=== PATIENT | female | born 1960 | race Caucasian/White ===

== ENCOUNTER 2018-12-28 11:53 | Inpatient (IN) ==
[2018-12-28] MEDS ORDERED: ONDANSETRON INJ 2 MG/ML 2 ML VIAL IV STA (12:06)
[2018-12-28] MEDS ORDERED: SODIUM CHLORIDE 0.9% 1000ML 2,000 ML IV ONE (12:06)
[2018-12-28 12:24] LABS: Basophils # (auto) 0.01 K/uL (0-0.2); Basophils % (auto) 0.2 %; Eosinophils # (auto) 0.07 K/uL (0-0.5); Eosinophils % (auto) 1.4 %; Hematocrit (blood only) 37.3 % (37-47); Hemoglobin 12.8 g/dL (12.0-16.0); Immature Granulocytes # (auto) 0.03 K/uL (0.00-0.02); Immature Granulocytes % (auto) 0.6 %; Lymphocytes # (auto) 1.04 K/uL (1.2-3.4); Lymphocytes % (auto) 21.3 %; Mean Corpuscular Hemoglobin 30.3 pg (25-34); Mean Corpuscular Hgb Conc 34.3 g/dL (32-36); Mean Corpuscular Volume 88.2 fL (80-100); Mean Platelet Volume 9.3 fL (7.4-10.4); Monocytes # (auto) 0.37 K/uL (0.11-0.59); Monocytes % (auto) 7.6 %; Neutrophils # (auto) 3.36 K/uL (1.4-6.5); Neutrophils % (auto) 68.9 %; Platelet Count 214 K/uL (130-400); RDW Coefficient of Variation 12.1 % (11.5-14.5); RDW Standard Deviation 38.5 fL (36.4-46.3); Red Blood Count 4.23 M/uL (4.2-5.4); White Blood Count 4.88 K/uL (4.8-10.8)
[2018-12-28 12:30] LABS: Appearance Urine Clear (Clear); Bilirubin Urine Negative (Negative); Blood Urine Negative (Negative); Color Urine Yellow; Glucose Urine UA Negative (Negative); Leukocyte Esterase Urine Negative (Negative); Nitrite Urine Negative (Negative); Protein Urine Negative (Negative); Specific Gravity Urine 1.018 (1.000-1.030); Urobilinogen Urine Negative (Negative)
[2018-12-28 12:32] LABS: Ketones Urine 3+ (Negative)
--- NOTE | 2018-12-28 12:33 | XRay Report ---
XR chest 1V portable CLINICAL HISTORY: Cough. Shortness of breath. COMPARISON STUDY: No previous studies for comparison. FINDINGS: Lung volumes are normal. Lungs are clear. There is no pneumothorax or pleural effusion. Car diac size is normal. Mediastinal contours are normal. There is no evidence for pulmonary edema. IMPRESSION: No acute cardiopulmonary findings. Electronically signed by: Rick Weeks M.D. 12/28/2018 12:32 PM
[2018-12-28] MEDS ORDERED: MoRPHine SULFATE 10 MG/ML CARP/VIAL IV STA (12:34)
[2018-12-28] MEDS ORDERED: MoRPHine SULFATE 2 MG/ML CARP ONE (12:40)
[2018-12-28] MEDS ORDERED: MoRPHine SULFATE 4 MG/ML 1 ML CARP\\VIAL ONE (12:40)
[2018-12-28 12:41] LABS: Albumin Level 4.1 gm/dl (3.4-5.0); BUN Creatinine Ratio 10.6 (10-20); Calcium 9.3 mg/dl (8.5-10.1); Creatinine Clr Calc Pharmacy 76.5 ml/min; Est GFR (African American) 94.2; Est GFR (Non-African American) 81.3; Potassium 3.7 mmol/L (3.5-5.1)
[2018-12-28 12:44] LABS: Albumin Globulin Ratio 1.1 (0.9-2); Bilirubin,Total 0.6 mg/dl (0.2-1); Globulin 3.7 gm/dl (2.5-4.0); Total Protein 7.8 gm/dl (6.4-8.2)
[2018-12-28 13:02] LABS: Troponin I < 0.015 ng/ml (0-0.045)
--- NOTE | 2018-12-28 14:50 | Ultrasound Report ---
US gallbladder HISTORY: Pain. Nausea. Recent cholecystectomy with right upper quadrant abdominal pain and elevated LFTs COMPARISON: None. FINDINGS: Ultrasonic evaluation of the right upper quadrant shows the pancreas to be normal. Fatty replacement of the liver is noted. Prior cholecystectomy. No evidence for collection or abscess within the gallbladder fossa. Common bile duct 6 mm. Right kidney is negative for hydronephrosis. IMPRESSION: 1. Prior cholecystectomy. 2. No evidence for abscess or collection. 3. Fatty replacement of the liver. 4. Otherwise negative study The above report was generated using voice recognition software. It may contain grammatical, syntax or spelling errors. Electronically signed by: Lucio Rider M.D. 12/28/2018 2:49 PM
--- NOTE | 2018-12-28 16:09 | History & Physical Report ---
Date of Service December 28, 2018 Assessment & Plan (1) Abdominal pain, acute, right upper quadrant: Patient s/p laparoscopic cholecystectomy performed on 12/08/18 at [facility] by Dr. Vale. Per report, no complications during surgery. Patient did well for the first week then developed worsening abdominal pain, nausea, vomiting and PO intolerance. CT abdomen at OSH with no acute issues identified, no evidence of post-operative complication. Mildly elevated transaminase levels which have since improved. Non-obstructive pattern to LFTs with no duct dilatation noted on imaging. ?gastritis/GERD/gastroparesis as etiology of discomfort. Sister with reported history of Primary Biliary Cirrhosis -Observation to medical floor -Obtain MRCP -GI Consultation appreciated. Patient seen by GI while in the ER -NPO for now for possible endoscopy in AM -Symptom control with Morphine PRN, Zofran PRN -Repeat LFTs in AM Present on Admission?: Yes (2) Nausea: As above -Zofran PRN Present on Admission?: Yes (3) Transaminitis: Mildly elevated transaminase levels, AST=40 and VGC=802 now, seemingly improved from outside records. ?retained stone, ?fatty liver -Repeat LFTs in AM F/E/N - LR at 100mL/hr x 2 L, monitor electrolytes and replete as needed, NPO for now Ppx - SCDs, continue Protonix 40mg IV BID Code - Full Dispo - Observation to medical floor Present on Admission?: Yes History of Present Illness Chief Complaint: abdominal pain Primary Care Provider: Skyler Harper Yohana Young is a 58yo C female s/p laparoscopic cholecystectomy performed at [facility] on 12/08/[address] Vale. Per report the surgery went well, no complications identified. She was discharged home in stable condition. She reports doing quite well for the first week following the surgery. She was eating well, pain was well controlled and had resolution of her chronic nausea. On 12/24/18 she developed increased pain in her RUQ as well as severe nausea and dry heaving. She was unable to tolerate PO. She returned to the ER at [place] on 12/26/18 with the above complaints - persistent nausea/dry heaves/abdominal pain and po intolerance. She was admitted for workup and treatment. During that stay she had elevation in AST to 177 and ALT to 205. RUQUS performed which showed increased liver echogenicity likely secondary to fatty liver infiltration. NO bile duct dilatation noted. She had a CT Abdomen/Pelvis with IV contrast performed on 12/26 which was unchanged from prior study from 12/04. Study suggested fatty liver infiltration, small stable cyst in right lobe of the liver, no acute process. Remainder of workup was negative to include a hepatitis panel as well. She was seen by her surgeon during her admission and told that her pain was not surgical in nature. She was treated with protonix/zofran and pain medication. She ultimately ended up leaving [place] because she felt her symptoms were not being adequately addressed. Per record review: patient with history of recurrent abdominal pain. She was hospitalized in October and November for abdominal pain. She had an EGD performed in October which revealed a 2cm hiatal hernia, gastritis, gastric polyps and prominent esophageal veins. She had a HIDA performed in November which showed biliary dyskinesia of 2% therefore was referred for cholecystectomy. Allergies Allergy/AdvReac Type Severity Reaction Status Date / Time No Known Allergies Allergy Unverified 12/28/18 13:09 Home Medications Home Medications Medication Instructions Recorded Confirmed Type pantoprazole 40 mg PO BID 12/28/18 12/28/18 History sucralfate [Carafate] 1 g PO UD 12/28/18 12/28/18 History Past Med/Surg History Medical History Fatty liver Surgical History History of cholecystectomy Family History Sister Primary biliary cirrhosis Other Heart disease Social History Feels Safe at Home: Yes Smoking Status: Never smoker Hx Alcohol Use: No Hx Substance Use: No Review of Systems Review of Systems: All systems reviewed & are unremarkable except as noted in HPI & below Patient denies fevers, has had some chills Denies chest pain, palpitations, SOB, diarrhea Physical Exam Physical Exam: General: patient resting comfortably, NAD, non-toxic in appearance, AA&O x 4, anxious in appearance Skin: warm, dry, no rashes or lesions, no jaundice HEENT: NC/AT, PERRL, EOMI, anicteric sclera, conjunctiva without injection, external ear normal to inspection and nontender, nares patent, moist mucus membranes, dentition intact, no oropharyngeal lesions, neck supple, trachea midline, no LAD, no thyromegaly, no JVD Heart: +S1/S2, regular, no m/r/g Lungs: equal air entry bilaterally, no rales/rhonchi/wheezes Abd: +BS, soft, ND, no masses/organomegaly/ascites, tenderness in RUQ with no rebound/guarding/peritoneal signs, surgical incisions well approximated, no bleeding/drainage/erythema Ext: warm, 2+ pulses in UE/LE bilaterally, no clubbing/cyanosis or edema Neuro: nonfocal, patient AA&O x 4, speech intact, no facial droop, moving all extremities on command with equal strength 5/5 Results & Data Vital Signs (Past 12 Hours) Vital Signs Temp Pulse Pulse Resp BP BP Pulse Ox 12/28/18 16:06 72 18 159/93 H 98 12/28/18 15:19 70 16 167/93 H 98 12/28/18 12:46 20 96 12/28/18 11:57 36.8 C 84 20 156/93 H 97 Laboratory Results Lab Results 12/28/18 12/28/18 12/28/18 Range/Units 12:10 12:10 12:10 WBC 4.88 (4.8-10.8) K/uL RBC 4.23 (4.2-5.4) M/uL Hgb 12.8 (12.0-16.0) g/dL Hct 37.3 (37-47) % MCV 88.2 (80-100) fL MCH 30.3 (25-34) pg MCHC 34.3 (32-36) g/dL RDW Std Deviation 38.5 (36.4-46.3) fL RDW Coeff of Debra 12.1 (11.5-14.5) % Plt Count 214 (130-400) K/uL MPV 9.3 (7.4-10.4) fL Immature Gran % (Auto) 0.6 % Neut % (Auto) 68.9 % Lymph % (Auto) 21.3 % Davison % (Auto) 7.6 % Eos % (Auto) 1.4 % Baso % (Auto) 0.2 % Immature Gran # (Auto) 0.03 H (0.00-0.02) K/uL Neut # (Auto) 3.36 (1.4-6.5) K/uL Lymph # (Auto) 1.04 L (1.2-3.4) K/uL Davison # (Auto) 0.37 (0.11-0.59) K/uL Eos # (Auto) 0.07 (0-0.5) K/uL Baso # (Auto) 0.01 (0-0.2) K/uL Sodium 141 (136-145) mmol/L Potassium 3.7 (3.5-5.1) mmol/L Chloride 109 H (98-107) mmol/L Carbon Dioxide 25 (21-32) mmol/L Anion Gap 7.0 (3-11) BUN 8 (7-18) mg/dl Creatinine 0.80 (0.6-1.2) mg/dl Est Cr Clr Drug Dosing 76.5 ml/min Est GFR ( Amer) 94.2 Est GFR (Non-Af Amer) 81.3 BUN/Creatinine Ratio 10.6 (10-20) Glucose 91 (70-99) mg/dl Calcium 9.3 (8.5-10.1) mg/dl Total Bilirubin 0.6 (0.2-1) mg/dl AST 40 H (15-37) U/L ALT 154 H (12-78) U/L Alkaline Phosphatase 111 (45-117) U/L Troponin I (0-0.045) ng/ml Total Protein 7.8 (6.4-8.2) gm/dl Albumin 4.1 (3.4-5.0) gm/dl Globulin 3.7 (2.5-4.0) gm/dl Albumin/Globulin Ratio 1.1 (0.9-2) Lipase 108 (73-393) U/L Urine Color Yellow Urine Appearance Clear (Clear) Urine pH 5.0 (4.5-7.5) Ur Specific [place] 1.018 (1.000-1.030) Urine Protein Negative (Negative) Urine Glucose (UA) Negative (Negative) Urine Ketones 3+ H (Negative) Urine Blood Negative (Negative) Urine Nitrite Negative (Negative) Urine Bilirubin Negative (Negative) Urine Urobilinogen Negative (Negative) Ur Leukocyte Esterase Negative (Negative) 12/28/18 Range/Units 12:10 WBC (4.8-10.8) K/uL RBC (4.2-5.4) M/uL Hgb (12.0-16.0) g/dL Hct (37-47) % MCV (80-100) fL MCH (25-34) pg MCHC (32-36) g/dL RDW Std Deviation (36.4-46.3) fL RDW Coeff of Debra (11.5-14.5) % Plt Count (130-400) K/uL MPV (7.4-10.4) fL Immature Gran % (Auto) % Neut % (Auto) % Lymph % (Auto) % Davison % (Auto) % Eos % (Auto) % Baso % (Auto) % Immature Gran # (Auto) (0.00-0.02) K/uL Neut # (Auto) (1.4-6.5) K/uL Lymph # (Auto) (1.2-3.4) K/uL Davison # (Auto) (0.11-0.59) K/uL Eos # (Auto) (0-0.5) K/uL Baso # (Auto) (0-0.2) K/uL Sodium (136-145) mmol/L Potassium (3.5-5.1) mmol/L Chloride (98-107) mmol/L Carbon Dioxide (21-32) mmol/L Anion Gap (3-11) BUN (7-18) mg/dl Creatinine (0.6-1.2) mg/dl Est Cr Clr Drug Dosing ml/min Est GFR ( Amer) Est GFR (Non-Af Amer) BUN/Creatinine Ratio (10-20) Glucose (70-99) mg/dl Calcium (8.5-10.1) mg/dl Total Bilirubin (0.2-1) mg/dl AST (15-37) U/L ALT (12-78) U/L Alkaline Phosphatase (45-117) U/L Troponin I < 0.015 (0-0.045) ng/ml Total Protein (6.4-8.2) gm/dl Albumin (3.4-5.0) gm/dl Globulin (2.5-4.0) gm/dl Albumin/Globulin Ratio (0.9-2) Lipase (73-393) U/L Urine Color Urine Appearance (Clear) Urine pH (4.5-7.5) Ur Specific [place] (1.000-1.030) Urine Protein (Negative) Urine Glucose (UA) (Negative) Urine Ketones (Negative) Urine Blood (Negative) Urine Nitrite (Negative) Urine Bilirubin (Negative) Urine Urobilinogen (Negative) Ur Leukocyte Esterase (Negative) Diagnostic Findings US gallbladder HISTORY: Pain. Nausea. Recent cholecystectomy with right upper quadrant abdominal pain and elevated LFTs COMPARISON: None. FINDINGS: Ultrasonic evaluation of the right upper quadrant shows the pancreas to be normal. Fatty replacement of the liver is noted. Prior cholecystectomy. No evidence for collection or abscess within the gallbladder fossa. Common bile duct 6 mm. Right kidney is negative for hydronephrosis. IMPRESSION: 1. Prior cholecystectomy. 2. No evidence for abscess or collection. 3. Fatty replacement of the liver. 4. Otherwise negative study The above report was generated using voice recognition software. It may contain grammatical, syntax or spelling errors. Electronically signed by: Lucio Rider M.D. 12/28/2018 2:49 PM Dictated: 12/28/18 1448 Transcribed: 12/28/18 1448 XR chest 1V portable CLINICAL HISTORY: Cough. Shortness of breath. COMPARISON STUDY: No previous studies for comparison. FINDINGS: Lung volumes are normal. Lungs are clear. There is no pneumothorax or pleural effusion. Cardiac size is normal. Mediastinal contours are normal. There is no evidence for pulmonary edema. IMPRESSION: No acute cardiopulmonary findings. Electronically signed by: Rick Weeks M.D. 12/28/2018 12:32 PM Dictated: 12/28/18 1231 Transcribed: 12/28/18 1231 ECG Additional Comments: NSR at 66bpm, normal axis and intervals, no evidence of ischemia Code Status & VTE Plan Code Status Full VTE Prophylaxis Plan VTE Prophylaxis will be ordered: Yes PG Care Time/CCT Total # of Minutes Spent Total Time Spent with Patient: Total time spent is greater than 50% in coordination of care (as documented) at patient's floor/unit and/or counseling patient:
--- NOTE | 2018-12-28 16:32 | Gastrointestinal Consultation ---
Date of Consultation December 28, 2018 Assessment & Plan (1) Transaminitis: (2) Abdominal pain, acute, right upper quadrant: Pt is a 58 y/o female presented w RUQ abd pain, n/v. Hx of cholecystectomy on 12/08, labs notable for transaminitis, gallbladder u/s w/o fluid collection or abscess - PPI IV BID - Check MRCP -> if positive for biliary obstruction, will plan for ERCP tomorrow. If negative, will plan for EGD tomorrow instead to r/o PUD, Hpylori, gastritis - Keep NPO after midnight - Trend LFTs Supervising Physician Co-Signing Physician Notes I performed a history and physical examination of the patient, including specifically on physical exam - soft, nontender abdomen. I have discussed the patient's management with Krys. Please refer to the nurse practitioner's note for the documented findings and plan of care. 58 female patient s/p recent cholecystectomy due to dyskinesia. Now has recurrent symptoms of nausea, vomiting and dyspepsia. She was told previously she may have Gastroparesis given her normal EGD. Plan: MRCP, if negative for biliary obstruction then EGD tomorrow. GES as OP. History of Present Illness Reason for Consultation: Abd pain, n/v; s/p cholecystectomy Requesting Physician: Dr. Emile Candelario Attending Physician: Dr. Ismael Sánchez History of Present Illness Pt is a 58 y/o female who presented to ED w c/o RUQ abd pain, n/v. Had lap cholecystectomy on 12/08 in [place] area. Cholecystectomy done for HIDA w low EF and pt having nausea symptoms. For about 1 week post op pt feels well. However now started to have RUQ abd pain, n/v. Denies bowel habit changes. She initially presented to [place] ED prior to coming to [facility]. Labs there showed transaminitis. Repeat labs here showed similar transaminitis, normal Tbili and alk phos. Lipase normal. Gallbladder u/s w/o abscess or collection, + fatty liver Allergies Allergy/AdvReac Type Severity Reaction Status Date / Time No Known Allergies Allergy Unverified 12/28/18 13:09 Home Medications Home Medications Medication Instructions Recorded Confirmed Type pantoprazole 40 mg PO BID 12/28/18 12/28/18 History sucralfate [Carafate] 1 g PO UD 12/28/18 12/28/18 History Patient History Medical History Gall bladder disease Surgical History History of cholecystectomy Family History Sister Primary biliary cirrhosis Other Heart disease Social History Preferred Language: Faroese Communication Ability: Effective Cutter Hand Required: No Beliefs That Will Affect Care: None Current Living Situation: Spouse Feels Safe at Home: Yes Smoking Status: Unknown if ever smoked Hx Alcohol Use: Yes Alcohol type: wine Hx Substance Use: No Review of Systems Review of Systems: All systems reviewed & are unremarkable except as noted in HPI & below Physical Exam Constitutional: WD/WN, vitals as above well groomed, cooperative and comfortable Eyes: PERRL, conjunctivae normal, anicteric sclerae ENMT: external ear and nose normal, oropharynx normal Respiratory: normal respiratory effort, lungs clear to auscultation Cardiovascular: RRR, no murmur, no edema Gastrointestinal (Abdomen): Inspection/Auscultation: + hypoactive bowel sounds Percussion/Palpation: + abdomen tender (RUQ) and abdomen soft Skin: no rashes, warm and dry no jaundice Psychiatric: A+Ox3, euthymic affect Lymphatic: no lymphedema Results & Data Vital Signs (Past 12 Hours) Vital Signs Temp Pulse Pulse Resp BP BP Pulse Ox 12/28/18 16:06 72 18 159/93 H 98 12/28/18 15:19 70 16 167/93 H 98 12/28/18 12:46 20 96 12/28/18 11:57 36.8 C 84 20 156/93 H 97
--- NOTE | 2018-12-28 16:38 | XRay Report ---
XR abdomen min 2V CLINICAL HISTORY: 58 years-old Female presenting with ruq abd pain. TECHNIQUE: Single supine view of the abdomen was obtained. COMPARISON: Right upper quadrant ultrasound performed earlier today. FINDINGS: Nonobstructive bowel gas pattern. No gross pneumoperitoneum. Allowing for bowel gas and stool, no calcifications to suggest nephrolithiasis. Fallopian tube occlus ion clips noted. Osseous structures normal. Lung bases clear. IMPRESSION: 1. No acute intra-abdominal pathology. Electronically signed by: José Manuel Maravilla M.D. 12/28/2018 4:36 PM
--- NOTE | 2018-12-28 17:08 | Magnetic Resonance Report ---
MR MRCP CLINICAL HISTORY: Right upper quadrant pain. Nausea and vomiting. History of prior cholecystectomy, o n December 13, 2018. Evaluate for retained calculi.. COMPARISON STUDY: No previous studies for comparison. FINDINGS: A breath-hold MRCP was performed. MIP images were acquired. There is a 7 mm T2 bright focus within the right lobe of the liver likely representing a cyst. There is no splenomegaly. There is no intra or extrahepatic biliary ductal dilatation. The common bile duct measures 4 mm. Ther e are no filling defects to indicate retained calculi. The pancreatic duct is of normal caliber. IMPRESSION: 1. No evidence of biliary or pancreatic ductal dilatation 2. No ductal filling defects to indicate calculi 3. Surgically absent gallbladder Electronically signed by: Venkat Ma M.D. 12/28/2018 5:07 PM
--- NOTE | 2018-12-28 17:25 | Emergency Department Note ---
Entered by Reynaldo Field acting as a scribe for Emile Candelario DO History of Present Illness General Chief complaint: Vomiting Stated complaint: NAUSEA, VOMITING Source: patient History of Present Illness Provider complaint: Abdominal pain Onset (ago): day(s) 3 Location: abdomen Severity: similar to prior episodes Pain Consistency: + other (Worsening) Maximum Pain Intensity: 8 Current Pain Intensity: 8 Relieved By: + none Exacerbated By: + none Associated symptoms: + loss of appetite and + nausea/vomiting; no chest pain, no cough, no fever/chills and no shortness of breath The patient is a 58 year old female w/ PMHx a cholecystectomy who presents to the ED w/ CC of right upper quadrant abdominal pain that started to worsen about 3 days ago. The patient states that since January 2018 she has had nausea, v omiting and loss of appetite. She notes that she went to [facility] in [place] 4 times and had her gallbladder taken out on December 13. The patient went to her follow up appointments and was healing nicely until 3 days ago when her abdominal pain returned along with the nausea and loss of appetite. The patient rates the pain as an 8/10 and notes nothing makes it better or worse. When the pain returned, the patient was hospitalized at [facility]. While she was there she had a CT and ultrasound done. She also saw both general surgery and GI. The patient denies any diarrhea, urinary symptoms, cough, rhinorrhea, or fevers. Home Medications Home Medications Medication Instructions Recorded Confirmed Type pantoprazole 40 mg PO BID 12/28/18 12/28/18 History sucralfate [Carafate] 1 g PO UD 12/28/18 12/28/18 History Allergies Allergy/AdvReac Type Severity Reaction Status Date / Time No Known Allergies Allergy Unverified 12/28/18 13:09 Past Med/Surg History Medical History Gall bladder disease Surgical History History of cholecystectomy Family History Sister Primary biliary cirrhosis Other Heart disease Social History Feels Safe at Home: Yes Smoking Status: Never smoker Hx Alcohol Use: No Hx Substance Use: No Review of Systems See HPI for pertinent positives & negatives. and A total of 10 systems reviewed and were otherwise negative Physical Exam Vital Signs Vital Signs - 24 hr 12/28/18 11:57 12/28/18 12:46 12/28/18 15:19 Temperature 36.8 C Temperature Source Oral Sepsis Recent Fever Within 48 Hours No Sepsis Action Taken by Nursing No Action Required Pulse Rate 84 Pulse Rate [Left Finger] 70 Pulse Rhythm Regular Pulse Strength Normal Respiratory Rate 20 20 16 Respiratory Effort / Characteristics Non-Labored Spontaneous Non-Labored Respiratory Depth Normal Normal Respiratory Pattern Regular Regular Blood Pressure 156/93 H Blood Pressure [Left Arm] 167/93 H Blood Pressure Mean 114 Blood Pressure Mean [Left Arm] 117 Blood Pressure Position Sitting Pulse Oximetry 97 96 98 Oxygen Delivery Method Room Air Room Air Room Air 12/28/18 16:06 Temperature Temperature Source Sepsis Recent Fever Within 48 Hours Sepsis Action Taken by Nursing Pulse Rate Pulse Rate [Left Finger] 72 Pulse Rhythm Pulse Strength Respiratory Rate 18 Respiratory Effort / Characteristics Non-Labored Respiratory Depth Normal Respiratory Pattern Regular Blood Pressure Blood Pressure [Left Arm] 159/93 H Blood Pressure Mean Blood Pressure Mean [Left Arm] 115 Blood Pressure Position Pulse Oximetry 98 Oxygen Delivery Method Room Air GENERAL: Sitting up in bed holding RUQ, alert, well appearing, well nourished, in minimal distress, non-toxic EYE EXAM: normal conjunctiva. OROPHARYNX: no exudate, no erythema, lips, buccal mucosa, and tongue normal and mucous membranes are moist NECK: supple, no nuchal rigidity, no adenopathy, non-tender LUNGS: Clear to auscultation. Normal chest wall mechanics HEART: no murmurs, S1 normal and S2 normal ABDOMEN: abdomen soft, tender to palpation of the RUQ tracking through the right lateral ribs, , normo-active bowel, sounds, no masses, no rebound or guarding. Old incisions are clean dry and intact BACK: Back is symmetrical on inspection and there is no deformity, no midline tenderness, no CVA tenderness. SKIN: no rashes and no bruising UPPER EXTREMITIES: upper extremities are grossly normal. LOWER EXTREMITIES: No pitting edema. NEURO EXAM: Normal sensorium, cranial nerves II-XII grossly intact, normal speech, no gross weakness of arms, no gross weakness of legs. Course ED COURSE: Vital signs were reviewed and showed hypertension. The patients medical record was reviewed The above diagnostic studies were performed and reviewed. ED treatments and interventions as stated above. 1213: The patient was evaluated in room B04B. A complete history and physical examination was performed. 1414: Upon reevaluation, the patient is resting in bed. I discussed my findings with the patient and she understands and agrees with the treatment plan. 1455: I spoke to Krys HERRERA about the patient's case. She suggested admitting the patient to medicine and they will do a MRCP. 1532: I spoke to Dr. Tejeda [facility] Hospitalist about the patient's case. She is going to accept the patient for further evaluation. Based on the patients age, coexisting illnesses, exam and lab findings the decision to treat as an inpatient was made. The patient remained stable while under my care. The patient will be evaluated for further management. Consultations Consultation #1: I spoke to Krys HERRERA about the patient's case. She suggested admitting the patient to medicine and they will do a MRCP. Time: 14:55 Consultation #2: I spoke to Dr. Nikhil Painting [facility] Hospitalist about the patient's case. She is going to accept the patient for further evaluation. Time: 15:32 Administered Medications Discontinued Medications Sodium Chloride (Nss 1000ml) 2,000 mls @ 999 mls/hr IV .Q2H1M ONE Stop: 12/28/18 14:06 Last Infusion: 12/28/18 14:35 Dose: 0 mls/hr Documented by: [id number] Admin: 12/28/18 12:34 Dose: 999 mls/hr Documented by: [id number] Morphine Sulfate (Morphine Sulfate) 6 mg IV NOW STA Stop: 12/28/18 12:35 Last Admin: 12/28/18 12:41 Dose: Not Given Documented by: [id number] Morphine Sulfate (Morphine Sulfate) Confirm Administered Dose 2 mg .ROUTE .STK- MED ONE Stop: 12/28/18 12:41 Last Admin: 12/28/18 12:41 Dose: 2 mg Documented by: [id number] Morphine Sulfate (Morphine Sulfate) Confirm Administered Dose 4 mg .ROUTE .STK- MED ONE Stop: 12/28/18 12:41 Last Admin: 12/28/18 12:41 Dose: 4 mg Documented by: [id number] Ondansetron HCl (Zofran) 4 mg IV NOW STA Stop: 12/28/18 12:07 Last Admin: 12/28/18 12:34 Dose: 4 mg Documented by: [id number] Medical Decision Making Differential Diagnosis Differential diagnoses includes but is not limited to gastritis, peptic ulcer disease, GERD, gallbladder disease, pancreatitis, small bowel obstruction, acute coronary syndrome, pericarditis, ischemic bowel, irritable bowel disease, irritable bowel syndrome, appendicitis, diverticulitis, malignancy, hernia, urinary tract infection, torsion, perforation, trauma, infectious. Medical Records Attestation: I reviewed the patient's medical records. Home Medications Current Medication List: was personally reviewed by me Laboratory Data Attestation: I reviewed the patient's lab results. Result diagrams: 12/28/18 12:10 12/28/18 12:10 Lab Results 12/28/18 12/28/18 12/28/18 Range/Units 12:10 12:10 12:10 WBC 4.88 (4.8-10.8) K/uL RBC 4.23 (4.2-5.4) M/uL Hgb 12.8 (12.0-16.0) g/dL Hct 37.3 (37-47) % MCV 88.2 (80-100) fL MCH 30.3 (25-34) pg MCHC 34.3 (32-36) g/dL RDW Std Deviation 38.5 (36.4-46.3) fL RDW Coeff of Debra 12.1 (11.5-14.5) % Plt Count 214 (130-400) K/uL MPV 9.3 (7.4-10.4) fL Immature Gran % (Auto) 0.6 % Neut % (Auto) 68.9 % Lymph % (Auto) 21.3 % Benton % (Auto) 7.6 % Eos % (Auto) 1.4 % Baso % (Auto) 0.2 % Immature Gran # (Auto) 0.03 H (0.00-0.02) K/uL Neut # (Auto) 3.36 (1.4-6.5) K/uL Lymph # (Auto) 1.04 L (1.2-3.4) K/uL Benton # (Auto) 0.37 (0.11-0.59) K/uL Eos # (Auto) 0.07 (0-0.5) K/uL Baso # (Auto) 0.01 (0-0.2) K/uL Sodium 141 (136-145) mmol/L Potassium 3.7 (3.5-5.1) mmol/L Chloride 109 H (98-107) mmol/L Carbon Dioxide 25 (21-32) mmol/L Anion Gap 7.0 (3-11) BUN 8 (7-18) mg/dl Creatinine 0.80 (0.6-1.2) mg/dl Est Cr Clr Drug Dosing 76.5 ml/min Est GFR ( Amer) 94.2 Est GFR (Non-Af Amer) 81.3 BUN/Creatinine Ratio 10.6 (10-20) Glucose 91 (70-99) mg/dl Calcium 9.3 (8.5-10.1) mg/dl Total Bilirubin 0.6 (0.2-1) mg/dl AST 40 H (15-37) U/L ALT 154 H (12-78) U/L Alkaline Phosphatase 111 (45-117) U/L Troponin I (0-0.045) ng/ml Total Protein 7.8 (6.4-8.2) gm/dl Albumin 4.1 (3.4-5.0) gm/dl Globulin 3.7 (2.5-4.0) gm/dl Albumin/Globulin Ratio 1.1 (0.9-2) Lipase 108 (73-393) U/L Urine Color Yellow Urine Appearance Clear (Clear) Urine pH 5.0 (4.5-7.5) Ur Specific Fisher 1.018 (1.000-1.030) Urine Protein Negative (Negative) Urine Glucose (UA) Negative (Negative) Urine Ketones 3+ H (Negative) Urine Blood Negative (Negative) Urine Nitrite Negative (Negative) Urine Bilirubin Negative (Negative) Urine Urobilinogen Negative (Negative) Ur Leukocyte Esterase Negative (Negative) 12/28/18 Range/Units 12:10 WBC (4.8-10.8) K/uL RBC (4.2-5.4) M/uL Hgb (12.0-16.0) g/dL Hct (37-47) % MCV (80-100) fL MCH (25-34) pg MCHC (32-36) g/dL RDW Std Deviation (36.4-46.3) fL RDW Coeff of Debra (11.5-14.5) % Plt Count (130-400) K/uL MPV (7.4-10.4) fL Immature Gran % (Auto) % Neut % (Auto) % Lymph % (Auto) % Benton % (Auto) % Eos % (Auto) % Baso % (Auto) % Immature Gran # (Auto) (0.00-0.02) K/uL Neut # (Auto) (1.4-6.5) K/uL Lymph # (Auto) (1.2-3.4) K/uL Benton # (Auto) (0.11-0.59) K/uL Eos # (Auto) (0-0.5) K/uL Baso # (Auto) (0-0.2) K/uL Sodium (136-145) mmol/L Potassium (3.5-5.1) mmol/L Chloride (98-107) mmol/L Carbon Dioxide (21-32) mmol/L Anion Gap (3-11) BUN (7-18) mg/dl Creatinine (0.6-1.2) mg/dl Est Cr Clr Drug Dosing ml/min Est GFR ( Amer) Est GFR (Non-Af Amer) BUN/Creatinine Ratio (10-20) Glucose (70-99) mg/dl Calcium (8.5-10.1) mg/dl Total Bilirubin (0.2-1) mg/dl AST (15-37) U/L ALT (12-78) U/L Alkaline Phosphatase (45-117) U/L Troponin I < 0.015 (0-0.045) ng/ml Total Protein (6.4-8.2) gm/dl Albumin (3.4-5.0) gm/dl Globulin (2.5-4.0) gm/dl Albumin/Globulin Ratio (0.9-2) Lipase (73-393) U/L Urine Color Urine Appearance (Clear) Urine pH (4.5-7.5) Ur Specific Fisher (1.000-1.030) Urine Protein (Negative) Urine Glucose (UA) (Negative) Urine Ketones (Negative) Urine Blood (Negative) Urine Nitrite (Negative) Urine Bilirubin (Negative) Urine Urobilinogen (Negative) Ur Leukocyte Esterase (Negative) Imaging Data Radiologist's Impression: Radiology results as stated below per my review and the radiologist's interpretation: XR chest 1V portable CLINICAL HISTORY: Cough. Shortness of breath. COMPARISON STUDY: No previous studies for comparison. FINDINGS: Lung volumes are normal. Lungs are clear. There is no pneumothorax or pleural effusion. Cardiac size is normal. Mediastinal contours are normal. There is no evidence for pulmonary edema. IMPRESSION: No acute cardiopulmonary findings. Electronically signed by: Rick Weeks M.D. 12/28/2018 12:32 PM US gallbladder HISTORY: Pain. Nausea. Recent cholecystectomy with right upper quadrant abdominal pain and elevated LFTs COMPARISON: None. FINDINGS: Ultrasonic evaluation of the right upper quadrant shows the pancreas to be normal. Fatty replacement of the liver is noted. Prior cholecystectomy. No evidence for collection or abscess within the gallbladder fossa. Common bile duct 6 mm. Right kidney is negative for hydronephrosis. IMPRESSION: 1. Prior cholecystectomy. 2. No evidence for abscess or collection. 3. Fatty replacement of the liver. 4. Otherwise negative study The above report was generated using voice recognition software. It may contain grammatical, syntax or spelling errors. Electronically signed by: Lucio Rider M.D. 12/28/2018 2:49 P ECG Data Attestation: I personally reviewed and interpreted this ECG as follows: Indication: vomiting Rate (beats per minute): 66 Rhythm: sinus rhythm Findings: + other (Normal axis); no PVC Blood Pressure Blood Pressure Findings: Elevated blood pressure Blood Pressure Disposition: Referred to patients primary care provider TANA Vera Patient is a 58-year-old female who presents the ER he was just discharged from [place] today after 3 days today for right upper quadrant abdominal pain with a transaminitis. Cholecystectomy done secondary to a HIDA with an EF of 3% at the end of November. Nausea vomiting and abdominal pain has been persistent for the past 3 days. She left AMA. Had an ultrasound and negative CAT scan per report. She notes she is unable to eat. She did see GI and general surgery down there. Vitals show that she is hypertensive. Labs show no significant leukocytosis or anemia. BMP along with LFTs was remarkable for an ALT of 154 and AST of 40 down from 200. Troponin was negative. Pain is reproducible on exam. Lipase was normal. Ultrasound was negative. UA was negative. Discussed with GI who recommended observation for MRCP. Update the hospitalist and patient was updated bedside. Patient was given IV fluids and IV morphine along with IV Zofran. Impression & Plan Abdominal pain, acute, right upper quadrant, Transaminitis Discharge Plan Visit Data Chief Complaint: Vomiting Stated Complaint: NAUSEA, VOMITING ED Provider: Emile Candelario Discharge Problem: Abdominal pain, acute, right upper quadrant, Transaminitis Patient Disposition: Being Evaluated by Hospitalist Forms Stand Alone Forms: My [facility] Prescriptions Prescriptions: No Action sucralfate [Carafate] 1 gram Tablet 1 g PO UD RF: 0 pantoprazole 40 mg tablet,delayed release (DR/EC) 40 mg PO BID RF: 0 Referrals Referrals: Skyler Harper [Primary Care Provider] - The scribe's documentation has been prepared under my direction and personally reviewed by me in its entirety. I confirm that the note above accurately r eflects all work, treatment, procedures, and medical decision making performed by me.
[2018-12-28] MEDS ORDERED: DOCUSATE SODIUM 100 MG CAP PO PRN (18:39)
[2018-12-28] MEDS ORDERED: POLYETHYLENE (MIRALAX) 17 GM PACK PO PRN (18:39)
[2018-12-28] MEDS: LACTATED RINGER'S 1,000 ML IV SCH (18:52)
[2018-12-28 19:17] LABS: Magnesium 2.2 mg/dl (1.8-2.4)
[2018-12-28] MEDS: PANTOprazole 40 MG in SYRINGE 0 ML IV SCH (19:40)
[2018-12-28] MEDS: MoRPHine SULFATE 2 MG/ML CARP IV PRN (20:50)
[2018-12-29] MEDS: MoRPHine SULFATE 2 MG/ML CARP IV PRN (03:07)
[2018-12-29] MEDS: LACTATED RINGER'S 1,000 ML IV SCH (03:54)
[2018-12-29 05:36] LABS: Basophils # (auto) 0.02 K/uL (0-0.2); Basophils % (auto) 0.4 %; Eosinophils # (auto) 0.26 K/uL (0-0.5); Eosinophils % (auto) 5.1 %; Hematocrit (blood only) 32.9 % (37-47); Hemoglobin 11.4 g/dL (12.0-16.0); Immature Granulocytes # (auto) 0.01 K/uL (0.00-0.02); Immature Granulocytes % (auto) 0.2 %; Lymphocytes # (auto) 1.38 K/uL (1.2-3.4); Lymphocytes % (auto) 27.2 %; Mean Corpuscular Hemoglobin 30.8 pg (25-34); Mean Corpuscular Hgb Conc 34.7 g/dL (32-36); Mean Corpuscular Volume 88.9 fL (80-100); Mean Platelet Volume 9.4 fL (7.4-10.4); Monocytes # (auto) 0.45 K/uL (0.11-0.59); Monocytes % (auto) 8.9 %; Neutrophils # (auto) 2.95 K/uL (1.4-6.5); Neutrophils % (auto) 58.2 %; Platelet Count 197 K/uL (130-400); RDW Standard Deviation 38.8 fL (36.4-46.3); White Blood Count 5.07 K/uL (4.8-10.8)
[2018-12-29 05:58] LABS: Albumin Level 3.4 gm/dl (3.4-5.0); BUN Creatinine Ratio 14.1 (10-20); Bilirubin Direct 0.1 mg/dl (0-0.2); Calcium 8.6 mg/dl (8.5-10.1); Creatinine Clr Calc Pharmacy 99.1 ml/min; Est GFR (African American) 115.2; Est GFR (Non-African American) 99.4; Potassium 3.4 mmol/L (3.5-5.1)
[2018-12-29 06:02] LABS: Bilirubin,Total 0.6 mg/dl (0.2-1); Total Protein 6.4 gm/dl (6.4-8.2)
[2018-12-29] MEDS: PANTOprazole 40 MG in SYRINGE 0 ML IV SCH ×2 (07:55→21:21)
[2018-12-29] MEDS: ONDANSETRON INJ 2 MG/ML 2 ML VIAL IV PRN (07:57)
[2018-12-29] MEDS ORDERED: DEXTROSE 50% 50 ML SYRINGE IV ONE (08:05)
[2018-12-29] MEDS ORDERED: D5W AND LACTATED RINGERS 1,000 ML IV SCH (08:45)
[2018-12-29] MEDS ORDERED: PROMETHAZINE HCL 12.5 MG in SODIUM CHLORIDE 0.9% 50 ML IV STA (09:51)
--- NOTE | 2018-12-29 09:55 | History & Physical Bridge Note ---
Date of Service December 29, 2018 History & Physical Bridge Note I have examined the patient, reviewed the History & Physical and in the interval since the performance of the History & Physical I have noted the following changes of clinical significance: no changes noted MRCP negative for biliary obstruction. Pt having nausea, dry heaving. She is still c/o mild upper abd pain as well. Currently NPO. VS and labs reviewed. Exam: - AAOx3, dry heaving - CTA bilateral lungs - HRR - Abd soft, hypoactive - Plan for EGD eval today by Dr. Sánchez - Keep NPO, continue Protonix 40mg IV BID - Trend LFTs Supervising Physician Co-Signing Physician Notes I performed a history and physical examination of the patient, including specifically on physical exam - soft, nontender abdomen. I have discussed the patient's management with Krys. Please refer to the nurse practitioner's note for the documented findings and plan of care. EGD today
[2018-12-29] MEDS ORDERED: POTASSIUM CHLORIDE 20 MEQ TABCR PO STA (10:31)
[2018-12-29 10:48] LABS: Bilirubin Direct 0.2 mg/dl (0-0.2); Bilirubin,Total 0.6 mg/dl (0.2-1); Total Protein 7.3 gm/dl (6.4-8.2)
--- NOTE | 2018-12-29 11:13 | Anesthesiology Consultation ---
Date of Service December 29, 2018 Assessment & Plan (1) Encounter for pre-operative examination: Chart Review Chart Review: Acceptable Risk for Surgery and Patient NOT seen in Pre Admission Testing Consults Requested none ASA ASA2 Proposed Anesthesia Anesthesia Type: MAC Risk / Benefits Reviewed With: PT / POA / Parent / Guardian, Accepts Plan and I nformed Consent Obtained History Surgery Operation Date: 12/29/18 09:30 Proposed Procedures p Esophagogastroduodenoscopy Dr Sánchez - Ismael Sánchez MD Height/Weight Height: 5 ft 5 in Weight: 73.2 kg Allergies Allergy/AdvReac Type Severity Reaction Status Date / Time No Known Allergies Allergy Unverified 12/28/18 13:09 Medications Home Medications Medication Instructions Recorded Confirmed Last Taken pantoprazole 40 mg PO BID 12/28/18 12/28/18 Unknown sucralfate [Carafate] 1 g PO UD 12/28/18 12/28/18 12/28/18 Active Medications Generic Name Dose Route Start Last Admin Trade Name Freq PRN Reason Stop Dose Admin Pantoprazole Sodium 40 mg/ 10 mls @ 5 mls/min 12/28/18 19:00 12/29/18 07:55 Syringe IV 01/27/19 18:59 5 mls/min BID@0900,2100 MONIQUE Administration Dextrose/Lactated Ringer's 1,000 mls @ 100 mls/hr 12/29/18 08:45 12/29/18 09:13 D5w And Lactated Ringers IV 01/28/19 08:44 100 mls/hr .Q10H MONIQUE Administration Morphine Sulfate 2 mg 12/28/18 18:39 12/29/18 03:07 Morphine Sulfate IV 01/11/19 18:38 2 mg Q4H PRN Administration Pain Ondansetron HCl 4 mg 12/28/18 18:39 12/29/18 07:57 Zofran IV 01/27/19 18:38 4 mg Q6H PRN Administration Nausea NPO Date Last Intake of Fluids: 12/28/18 Time Last Intake of Fluids: 18:00 Last Intake of Fluids Comment: sips and chips Date Last Intake of Solids: 12/25/18 Time Last Intake of Solids: 18:00 Past Medical History Medical History Fatty liver Exercise / Class Metabolic Activity II 4-5 Yardwork/Stairs/Walk up hill Past Family History Family History Sister Primary biliary cirrhosis Other Heart disease Past Surgical History Surgical History History of cholecystectomy Past Anesthesia History No Hx of Anesthesia Complications and No Family Hx of Anesthesia Complications History of PONV No Hx of PONV and No Hx of Motion Sickness Social History Smoking Status: Unknown if ever smoked Hx Alcohol Use: Yes Alcohol type: wine alcohol intake frequency: a few times a month Hx Substance Use: No Physical Exam Vital Signs Last Vital Signs Temp 36.9 C 12/29/18 11:04 Pulse 65 12/29/18 11:04 Resp 18 12/29/18 11:04 BP 165/87 H 12/29/18 11:04 Pulse Ox 97 12/29/18 11:04 ENMT Mouth: no dentition abnormality Thyromental Distance: > or= 3.5 Finger Breadths Mallampati Class: II Neck normal visual inspection Respiratory normal respiratory effort Auscultation: lungs clear to auscultation bilaterally Cardiovascular Rate/Rhythm: regular rate and regular rhythm Psychiatric Orientation: alert Testing Laboratory Results 12/29/18 04:48 12/29/18 04:48 Urine Color Yellow 12/28/18 12:10 Urine Appearance Clear (Clear) 12/28/18 12:10 Urine pH 5.0 (4.5-7.5) 12/28/18 12:10 Ur Specific Saline 1.018 (1.000-1.030) 12/28/18 12:10 Urine Protein Negative (Negative) 12/28/18 12:10 Urine Glucose (UA) Negative (Negative) 12/28/18 12:10 Urine Ketones 3+ (Negative) H 12/28/18 12:10 Urine Nitrite Negative (Negative) 12/28/18 12:10 Ur Leukocyte Esterase Negative (Negative) 12/28/18 12:10 12/29/18 12/29/18 08:29 08:01 POC Glucose 129 H 62 L* 12/28/18 12:10 POC Ur Test Pending
[2018-12-29] MEDS ORDERED: PROPOFOL IV EMULSION 10 MG/ML 20 ML VIAL IV ONE (11:52)
[2018-12-29] MEDS ORDERED: LIDOCAINE HCL 2% 2 ML VIAL/AMP(20MG/ML) INFIL ONE (11:52)
--- NOTE | 2018-12-29 12:05 | GI REPORT ---
Patient Name: Yohana Young Procedure Date: 12/29/2018 11:24 AM Date of : 1960 Admit Type: Inpatient Age: 58 Gender: Female Attending MD: Ismael Sánchez MD Procedure: Upper GI endoscopy Providers: Ismael Sánchez MD Referring MD: Skyler Harper Indications: Nausea with vomiting Medicines: Monitored Anesthesia Care Complications: No immediate complications. Estimated Blood Loss: Estimated blood loss: none. Procedure: Pre-Anesthesia Assessment: - Prior to the procedure, a History and Physical was performed, and patient medications and allergies were reviewed. The patient is competent. The risks and benefits of the procedure and the sedation options and risks were discussed with the patient. All questions were answered and informed consent was obtained. Patient identification and proposed procedure were verified by the physician and the nurse in the procedure room. Mental Status Examination: alert and oriented. Airway Examination: normal oropharyngeal airway and neck mobility. Respiratory Examination: clear to auscultation. CV Examination: normal. ASA Grade Assessment: II - A patient with mild systemic disease. After reviewing the risks and benefits, the patient was deemed in satisfactory condition to undergo the procedure. The anesthesia plan was to use monitored anesthesia care (MAC). Immediately prior to administration of medications, the patient was re-assessed for adequacy to receive sedatives. The heart rate, respiratory rate, oxygen saturations, blood pressure, adequacy of pulmonary ventilation, and response to care were monitored throughout the procedure. The physical status of the patient was re-assessed after the procedure. After obtaining informed consent, the endoscope was passed under direct vision. Throughout the procedure, the patient's blood pressure, pulse, and oxygen saturations were monitored continuously. The Endoscope was introduced through the mouth, and advanced to the second part of duodenum. The upper GI endoscopy was accomplished without difficulty. The patient tolerated the procedure well. Findings: The examined esophagus was normal. Striped mildly erythematous mucosa was found in the gastric antrum. Biopsies were taken with a cold forceps for Helicobacter pylori testing. Verification of patient identification for the specimen was done by the physician and nurse using the patient's name and date. The duodenal bulb and second portion of the duodenum were normal. Biopsies were taken with a cold forceps for histology. Impression: - Normal esophagus. - Erythematous mucosa in the antrum. Biopsied. - Normal duodenal bulb and second portion of the duodenum. Biopsied. Recommendation: - Return patient to hospital [place] for ongoing care. - Await pathology results. - GES as OP. - Recall GI if needed. Ismael Sánchez MD 12/29/2018 12:05:07 PM This report has been signed electronically. Note Initiated On: 12/29/2018 11:24 AM Number of Addenda: 0 I attest to the content of the Intraoperative Record and orders documented therein, exceptions below {[id number]}
--- NOTE | 2018-12-29 13:38 | Anesthesiology Progress Note ---
Date of Service December 29, 2018 Anesthesia Post Procedure Vital Signs Vital Signs: Temp Pulse Pulse Pulse Resp BP BP 12/29/18 13:12 36.6 C 59 L 18 12/29/18 12:25 60 18 160/90 H 12/29/18 12:10 61 18 142/83 H 12/29/18 11:55 36.7 C 63 16 127/77 12/29/18 11:04 36.9 C 65 18 165/87 H 12/29/18 07:13 36.5 C 59 L 18 12/28/18 22:40 36.8 C 62 18 12/28/18 18:39 37.2 C 64 18 12/28/18 18:10 64 20 142/86 H 12/28/18 17:28 69 20 155/93 H 12/28/18 16:06 72 18 159/93 H 12/28/18 15:19 70 16 167/93 H BP Pulse Ox 12/29/18 13:12 131/78 98 12/29/18 12:25 98 12/29/18 12:10 98 12/29/18 11:55 97 12/29/18 11:04 97 12/29/18 07:13 154/55 H 94 12/28/18 22:40 147/79 H 97 12/28/18 18:39 154/89 H 98 12/28/18 18:10 96 12/28/18 17:28 97 12/28/18 16:06 98 12/28/18 15:19 98 Pain Intensity Right Abdomen: Pain Intensity: 3 Transfer of Care Handoff Completed per policy Notes Mental Status: alert / awake / arousable Patient Amnestic to Procedure: Yes Nausea / Vomiting: adequately controlled Pain: adequately controlled Airway Patency, RR, SpO2: stable & adequate BP & HR: stable & adequate Hydration State: stable & adequate Anesthetic Complications: no major complications apparent
[2018-12-29] MEDS ORDERED: PROMETHAZINE HCL 12.5 MG in SODIUM CHLORIDE 0.9% 50 ML IV PRN (17:13)
[2018-12-29 18:04] LABS: Ferritin 88.6 ng/ml (8-388); Thyroid Stimulating Hormone 1.65 uIu/ml (0.300-4.500)
[2018-12-29] MEDS: POTASSIUM CHLORIDE 20 MEQ in D5W AND LACTATED RINGERS 1,000 ML IV SCH (18:26)
--- NOTE | 2018-12-29 21:14 | Hospitalist Progress Note ---
Date of Service December 29, 2018 Assessment & Plan (1) Nausea and vomiting: Present nearly 1 year. Extensive w/u to date - MRI brain, labs, EGD x 2 (performed this summer at [facility], and now [facility]), multiple CTs of abd/pelvis, multiple u/s of biliary tract, HIDA, stress test, etc. Work-up negative except EGD with gastritis. Nothing has fully relieved symptoms including numerous meds tried. Underwent lap monroe for biliary dyskinesia - symptoms improved for just a few days, then nausea/emesis returned; thus biliary disease not the over-arching culprit. Records suggest a dx of gastroparesis but she has never had a formal gastric emptying study. No depression, anxiety, or headache history. Despite prolonged time period with symptoms interestingly her albumin is very normal (4) and she has had minimal weight loss. Will check TSH, cortisol, sed rate, iron studies, b12 level. Obtain duodenal bx done at [facility] to r/o celiac disease. NPO after IN. Gastric emptying study in am. If all of the above is negative -- referral to GI motility clinic at a tertiary care center? Appreciate [facility] GI consult & recs. (2) Transaminitis: Present during recent stay at [facility] and also present here but ast/alt improving. Related to recent lap monroe? Other? Consider viral hep studies. Repeat LFTs am. (3) Biliary dyskinesia: s/p lap monroe November 2018. Despite such her GI symptoms have persisted. (4) Hypoglycemia: resolved. due to prolonged fasting state. cortisol level 12 making adrenal insufficiency highly unlikely. cont dextrose-containing fluids. (5) Gastritis: as seen on EGD today. cont PPI twice daily. (6) Hypokalemia: replace with fluids containing KCL. repeat BMP am. mag level noted to be normal. updated at bedside Subjective patient reports GI symptoms started last fall; she specifically remembers last January 2018. main symptoms are nausea, emesis, and dry heaves. does not endorse abdominal pain. despite lap monroe recently for biliary dyskinesia her symptoms have continued. most of this summer has been marked by daily episodes of nausea and vomiting. nausea occurs within minutes of eating. she can "feel it coming on like a wave" (she gets a warm sensation followed by nausea). denies discrete dizziness or lightheadedness. denies headaches, rashes, skin pigment changes. records reviewed from [facility] - has had multiple CT abd/pelvis, recent EGD (dilated lower esophageal veins but not discrete varices and gastritis seen), HIDA, RUQ u/s, lap monroe. also had nuclear stress test -- normal. MRI brain (by her report) was in 01/2018 and she was told it was normal. denies depression or anxiety. took reglan for 3-4 weeks - made symptoms worse. has taken PPI frequently in the last month -- symptoms have continued. Review of Systems Constitutional: + sweats and + weight loss (10 pounds last year); no fever and no chills Respiratory: no cough and no dyspnea Cardiovascular: no chest pain Gastrointestinal: no abdominal pain, no diarrhea/loose stools and no blood in stools Physical Exam Constitutional: well developed and well nourished; no acute distress, not thin, not cachectic and no altered mental status ENMT: external ear and nose normal, oropharynx normal Respiratory: normal respiratory effort, lungs clear to auscultation Cardiovascular: Rate/Rhythm: regular rate and regular rhythm Heart Sounds: normal S1 and normal S2; no murmur Vessels: posterior tibial pulses present and dorsalis pedis pulses present; no JVD Extremities: no edema Gastrointestinal (Abdomen): normal bowel sounds, soft, nontender, no hepatosplenomegaly Skin: no rashes, warm and dry Psychiatric: A+Ox3, euthymic affect Results & Data Vital Signs (Past 12 Hours) Vital Signs Temp Pulse Resp BP BP Pulse Ox 12/29/18 15:21 36.7 C 67 18 156/91 H 98 12/29/18 13:12 36.6 C 59 L 18 131/78 98 12/29/18 12:25 60 18 160/90 H 98 12/29/18 12:10 61 18 142/83 H 98 12/29/18 11:55 36.7 C 63 16 127/77 97 12/29/18 11:04 36.9 C 65 18 165/87 H 97 Laboratory Results Laboratory Results - last 24 hr 12/29/18 12/29/18 12/29/18 04:48 04:48 08:01 WBC 5.07 RBC 3.70 L Hgb 11.4 L Hct 32.9 L MCV 88.9 MCH 30.8 MCHC 34.7 RDW Std Deviation 38.8 RDW Coeff of Debra 12.0 Plt Count 197 MPV 9.4 Immature Gran % (Auto) 0.2 Neut % (Auto) 58.2 Lymph % (Auto) 27.2 [place] % (Auto) 8.9 Eos % (Auto) 5.1 Baso % (Auto) 0.4 Immature Gran # (Auto) 0.01 Neut # (Auto) 2.95 Lymph # (Auto) 1.38 [place] # (Auto) 0.45 Eos # (Auto) 0.26 Baso # (Auto) 0.02 ESR Sodium 141 Potassium 3.4 L Chloride 108 H Carbon Dioxide 27 Anion Gap 6.0 BUN 9 Creatinine 0.62 Est Cr Clr Drug Dosing 99.1 Est GFR ( Amer) 115.2 Est GFR (Non-Af Amer) 99.4 BUN/Creatinine Ratio 14.1 Glucose 61 L POC Glucose 62 L* Calcium 8.6 Iron Transferrin Transferrin % Sat Ferritin Total Bilirubin 0.6 Direct Bilirubin 0.1 AST 18 ALT 96 H Alkaline Phosphatase 86 Total Protein 6.4 Albumin 3.4 Vitamin B12 TSH Random Cortisol 12/29/18 12/29/18 12/29/18 08:29 09:59 16:54 WBC RBC Hgb Hct MCV MCH MCHC RDW Std Deviation RDW Coeff of Debra Plt Count MPV Immature Gran % (Auto) Neut % (Auto) Lymph % (Auto) [place] % (Auto) Eos % (Auto) Baso % (Auto) Immature Gran # (Auto) Neut # (Auto) Lymph # (Auto) [place] # (Auto) Eos # (Auto) Baso # (Auto) ESR Sodium Potassium Chloride Carbon Dioxide Anion Gap BUN Creatinine Est Cr Clr Drug Dosing Est GFR ( Amer) Est GFR (Non-Af Amer) BUN/Creatinine Ratio Glucose POC Glucose 129 H 92 Calcium Iron Transferrin Transferrin % Sat Ferritin Total Bilirubin 0.6 Direct Bilirubin 0.2 D AST 20 ALT 103 H Alkaline Phosphatase 101 Total Protein 7.3 Albumin 4.0 Vitamin B12 TSH Random Cortisol 12/29/18 12/29/18 12/29/18 17:21 17:21 17:21 WBC RBC Hgb Hct MCV MCH MCHC RDW Std Deviation RDW Coeff of Debra Plt Count MPV Immature Gran % (Auto) Neut % (Auto) Lymph % (Auto) [place] % (Auto) Eos % (Auto) Baso % (Auto) Immature Gran # (Auto) Neut # (Auto) Lymph # (Auto) [place] # (Auto) Eos # (Auto) Baso # (Auto) ESR 7 Sodium Potassium Chloride Carbon Dioxide Anion Gap BUN Creatinine Est Cr Clr Drug Dosing Est GFR ( Amer) Est GFR (Non-Af Amer) BUN/Creatinine Ratio Glucose POC Glucose Calcium Iron 36 Transferrin 210 Transferrin % Sat 12 L Ferritin 88.6 Total Bilirubin Direct Bilirubin AST ALT Alkaline Phosphatase Total Protein Albumin Vitamin B12 TSH 1.650 Random Cortisol 12.53 12/29/18 17:21 WBC RBC Hgb Hct MCV MCH MCHC RDW Std Deviation RDW Coeff of Debra Plt Count MPV Immature Gran % (Auto) Neut % (Auto) Lymph % (Auto) [place] % (Auto) Eos % (Auto) Baso % (Auto) Immature Gran # (Auto) Neut # (Auto) Lymph # (Auto) [place] # (Auto) Eos # (Auto) Baso # (Auto) ESR Sodium Potassium Chloride Carbon Dioxide Anion Gap BUN Creatinine Est Cr Clr Drug Dosing Est GFR ( Amer) Est GFR (Non-Af Amer) BUN/Creatinine Ratio Glucose POC Glucose Calcium Iron Transferrin Transferrin % Sat Ferritin Total Bilirubin Direct Bilirubin AST ALT Alkaline Phosphatase Total Protein Albumin Vitamin B12 387 TSH Random Cortisol PG Care Time/CCT Total # of Minutes Spent Total Time Spent with Patient: Total time spent is greater than 50% in coordination of care (as documented) at patient's floor/unit and/or counseling patient: (1) Nausea and vomiting Vomiting type: unspecified Vomiting Intractability: intractable Qualified Code(s): R11.2 - Nausea with vomiting, unspecified (2) Gastritis Gastritis type: unspecified gastritis Chronicity: unspecified Gastritis bleeding: without bleeding Qualified Code(s): K29.70 - Gastritis, unspecified, without bleeding
[2018-12-30] MEDS ORDERED: DiphenhydrAMINE HCL 50 MG/ML VIAL IV ONE (00:06)
[2018-12-30] MEDS: POTASSIUM CHLORIDE 20 MEQ in D5W AND LACTATED RINGERS 1,000 ML IV SCH ×2 (03:30→13:06)
[2018-12-30 06:41] LABS: Alanine Aminotransferase 70 U/L (12-78); Albumin Level 3.4 gm/dl (3.4-5.0); Aspartate Aminotransferase 10 U/L (15-37); BUN Creatinine Ratio 10.2 (10-20); Blood Urea Nitrogen 7 mg/dl (7-18); Calcium 8.9 mg/dl (8.5-10.1); Carbon Dioxide 28 mmol/L (21-32); Chloride 110 mmol/L (98-107); Creatinine Clr Calc Pharmacy 93.1 ml/min; Est GFR (African American) 112.9; Est GFR (Non-African American) 97.4; Glucose 116 mg/dl (70-99); Potassium 3.9 mmol/L (3.5-5.1); Sodium 142 mmol/L (136-145)
[2018-12-30 06:43] LABS: Alkaline Phosphatase 82 U/L (45-117); Bilirubin,Total 0.5 mg/dl (0.2-1); Total Protein 6.4 gm/dl (6.4-8.2)
[2018-12-30 07:58] LABS: Bilirubin Direct < 0.1 mg/dl (0-0.2)
[2018-12-30] MEDS: PANTOprazole 40 MG in SYRINGE 0 ML IV SCH (09:09)
[2018-12-30 11:26] LABS: Amphetamines+Metham, Urine Neg (Neg); Barbiturates, Urine Neg (Neg); Benzodiazepine, Urine Neg (Neg); Cocaine, Urine Neg (Neg); MDMA (Ecstacy), Urine Neg (Neg); Methadone, Urine Neg (Neg); Opiate, Urine Neg (Neg); Phencyclidine, Urine Neg (Neg)
--- NOTE | 2018-12-30 11:47 | Gastroenterology Progress Note ---
Date of Service December 30, 2018 Assessment & Plan (1) Transaminitis: (2) Abdominal pain, acute, right upper quadrant: Pt is a 58 y/o female presented w RUQ abd pain, n/v. Hx of cholecystectomy on 12/08, labs notable for transaminitis, gallbladder u/s w/o fluid collection or abscess. MRCP w/o signs of biliary obstruction EGD performed 12/29 showed erythematous stomach (bx pending), normal exam otherwise. LFTs normalized. She continues to have nausea, dry heaving. Attempted GES this AM but she vomited the food thus study cannot be performed. AM cortisol level and TSH normal. Feels better now on phenergan - Protonix 40mg daily - She is passing stools, flatus and denies abd pain thus will defer repeat abd imaging - May start CL diet, advance as tolerated - Symptomatic management w antiemetics - Discussed w primary hospitalist, Dr. Sharma, who is planning on obtaining urine toxicology to r/o cannabis use (? cannabis hyperemesis syndrome). Also may obtain brain MRI - No further plans from [facility], pls recall prn Supervising Physician Co-Signing Physician Notes I performed a history and physical examination of the patient, including specifically on physical exam - soft, nontender abdomen. I have discussed the patient's management with Krys. Please refer to the nurse practitioner's note for the documented findings and plan of care. Work up negative. Likely Functional disease. PRN Antiemetics. OP follow up. Recall Gi if needed. Subjective Pt tolerated CL diet last night. Denies any abd pain. Had dry heaving last night and GES ordered. She vomited back up the food used for the GES thus study cannot be performed. She feels better this AM on Phenergan. LFTs are normal now. She is passing flatus and had BM this AM. Review of Systems Review of Systems: All systems reviewed & are unremarkable except as noted in HPI & below Physical Exam Constitutional: WD/WN, vitals as above well groomed, cooperative and comfortable Eyes: PERRL, conjunctivae normal, anicteric sclerae ENMT: external ear and nose normal, oropharynx normal Respiratory: normal respiratory effort, lungs clear to auscultation Cardiovascular: RRR, no murmur, no edema Gastrointestinal (Abdomen): Inspection/Auscultation: + hypoactive bowel sounds Percussion/Palpation: abdomen soft; abdomen nontender (RUQ) Skin: no rashes, warm and dry no jaundice Psychiatric: A+Ox3, euthymic affect Lymphatic: no lymphedema Results & Data Vital Signs (Past 12 Hours) Vital Signs Temp Pulse Resp BP Pulse Ox 12/30/18 07:04 36.6 C 58 L 16 135/82 97
[2018-12-30] MEDS ORDERED: LORazepam 0.5 MG TAB PO STA (16:16)
[2018-12-30] MEDS: ONDANSETRON INJ 2 MG/ML 2 ML VIAL IV PRN (16:53)
[2018-12-30] MEDS ORDERED: LORazepam 0.5 MG TAB ONE (18:49)
[2018-12-30] MEDS ORDERED: GADOBUTROL 65ML VIAL IV PRN (19:27)
--- NOTE | 2018-12-30 19:48 | Magnetic Resonance Report ---
MRI OF THE BRAIN WITHOUT AND WITH IV CONTRAST CLINICAL HISTORY: intractable nausea/emesis; eval brain mass, etc COMPARISON STUDY: No previous studies for comparison. TECHNIQUE: Utilizing a 1.5 Melani magnet and dedicated coil, multiplanar, multiecho imaging of the br ain was performed pre and postcontrast administration. IV administration of 7.3 mL of Gadavist contr ast was uneventful. FINDINGS: There are no foci of restricted diffusion. No acute intracranial hemorrhage, midline shift or mass effect is present. Brain volume is normal. Ventricular system is normal. Basilar cisterns are patent. There are no extra-axial collections. Flow-voids for the major intracranial vessels are pres ent. There is no intracranial mass or pathologic enhancement. Calvarial signal is maintained. A punct ate subcortical white matter T2 hyperintense focus within the right frontal lobe is of doubtful signi ficance. IMPRESSION: Unremarkable MRI of the brain. No acute findings. No intracranial mass. Electronically signed by: Rick Weeks M.D. 12/30/2018 7:47 PM
--- NOTE | 2018-12-30 20:51 | Hospitalist Progress Note ---
Date of Service December 30, 2018 Assessment & Plan (1) Nausea and vomiting: Present nearly 1 year. Extensive w/u to date - MRI brain, labs, EGD x 2 (performed this summer at [facility], and now [facility]), multiple CTs of abd/pelvis, multiple u/s of biliary tract, HIDA, stress test, etc. Work-up negative except EGD with gastritis. Biopsy from EGD done at [facility] without H pylori and no celiac disease on duodenal bx. Nothing has fully relieved symptoms including numerous meds tried. Underwent lap [place] for biliary dyskinesia - symptoms improved for just a few days, then nausea/emesis returned; thus biliary disease not the over-arching culprit. Records suggest a dx of gastroparesis but she has never had a formal gastric emptying study. This was attempted this am and she promptly vomited the food material for the study. Study was aborted. No depression, anxiety, or headache history. Despite prolonged time period with symptoms interestingly her albumin is very normal (4) and she has had minimal weight loss. TSH, cortisol, sed rate, iron studies, b12 level all normal; b12 level technically normal but <400. Obtained repeat MRI brain w/ contrast today -- negative for tumor or [employer] cause of symptoms. Consider referral to GI motility clinic at a tertiary care center post- discharge. Appreciate [facility] consult & recs. (2) Transaminitis: Present during recent stay at [facility] and also present here. Resolved today. due to recent lap monroe? (3) Biliary dyskinesia: s/p lap monroe November 2018. Despite such her GI symptoms have persisted. (4) Hypoglycemia: resolved. due to prolonged fasting state. cortisol level 12 making adrenal insufficiency highly unlikely. cont dextrose-containing fluids but lower fluid rate to 50cc/hr. (5) Gastritis: as seen on EGD. mild. cont PPI twice daily. (6) Hypokalemia: replaced/resolved daughter updated at bedside today left phone message for home tomorrow if she is able to keep subsequent meals down? Subjective patient was in nuclear medicine this am. after 1-2 bites of the food used for the test she vomited the material back up immediately. was able to eat some lunch today (toast, etc) and DID keep this down. no other changes since yesterday. patient reports chronic fatigue of several months duration. states she sleeps well however. daughter at bedside -- she can't think of any specific pattern with respect to her mom's symptoms. patient cannot recall any specific food triggers. she does know that symptoms tend to be worse in the morning time. Review of Systems Constitutional: no fever Respiratory: no dyspnea Cardiovascular: no chest pain Gastrointestinal: + nausea and + vomiting; no abdominal pain, no constipation and no diarrhea/loose stools Physical Exam Constitutional: well developed and well nourished; no acute distress, not thin, not cachectic and no altered mental status ENMT: external ear and nose normal, oropharynx normal Respiratory: normal respiratory effort, lungs clear to auscultation Cardiovascular: Rate/Rhythm: regular rate and regular rhythm Heart Sounds: normal S1 and normal S2; no murmur Vessels: posterior tibial pulses present and dorsalis pedis pulses present; no JVD Extremities: no edema Gastrointestinal (Abdomen): normal bowel sounds, soft, nontender, no hepatosplenomegaly Skin: no rashes, warm and dry Psychiatric: A+Ox3, euthymic affect Results & Data Vital Signs (Past 12 Hours) Vital Signs Temp Pulse Resp BP BP Pulse Ox 12/30/18 15:00 36.8 C 76 18 123/82 97 12/30/18 12:40 36.7 C 75 134/85 Laboratory Results Laboratory Results - last 24 hr 12/30/18 12/30/18 05:09 10:45 Sodium 142 Potassium 3.9 Chloride 110 H Carbon Dioxide 28 Anion Gap 4.0 BUN 7 Creatinine 0.66 Est Cr Clr Drug Dosing 93.1 Est GFR ( Amer) 112.9 Est GFR (Non-Af Amer) 97.4 BUN/Creatinine Ratio 10.2 Glucose 116 H Calcium 8.9 Total Bilirubin 0.5 Direct Bilirubin < 0.1 D AST 10 L ALT 70 Alkaline Phosphatase 82 Total Protein 6.4 Albumin 3.4 Urine Opiates Screen Neg Ur Methadone, Qual Neg Urine Barbiturates Neg Ur Phencyclidine (PCP) Neg U Amphetamin/Meth Scrn Neg MDMA (Ecstasy) Screen Neg U Benzodiazepines Scrn Neg Ur Cocaine Metabolite Neg U Marijuana (THC) Screen Neg PG Care Time/CCT Total # of Minutes Spent Total Time Spent with Patient: Total time spent is greater than 50% in coordination of care (as documented) at patient's floor/unit and/or counseling patient: (1) Gastritis Chronicity: unspecified Gastritis bleeding: without bleeding Gastritis type: unspecified gastritis Qualified Code(s): K29.70 - Gastritis, unspecified, without bleeding (2) Nausea and vomiting Vomiting Intractability: intractable Vomiting type: unspecified Qualified Code(s): R11.2 - Nausea with vomiting, unspecified
[2018-12-31] MEDS ORDERED: ACETAMINOPHEN 325 MG TAB PO PRN (01:45)
[2018-12-31] MEDS: POTASSIUM CHLORIDE 20 MEQ in D5W AND LACTATED RINGERS 1,000 ML IV SCH (05:36)
[2018-12-31] MEDS ORDERED: PANTOprazole 40 MG TAB PO SCH (09:00)
--- NOTE | 2018-12-31 11:26 | Discharge Summary ---
Date of Service date of admission - December 28, 2018 date of discharge - December 31, 2018 Admission HPI Per Admitting Provider Yohana Young is a 58yo female s/p laparoscopic cholecystectomy performed at [facility] on 12/08/[address] Vale. Per report the surgery went well, no complications identified. She was discharged home in stable condition. She reports doing quite well for the first week following the surgery. She was eating well, pain was well controlled and had resolution of her chronic nausea. On 12/24/18 she developed increased pain in her RUQ as well as severe nausea and dry heaving. She was unable to tolerate PO. She returned to the ER at [place] on 12/26/18 with the above complaints - persistent nausea/dry heaves/abdominal pain and po intolerance. She was admitted for workup and treatment. During that stay she had elevation in AST to 177 and ALT to 205. RUQ US was performed which showed increased liver echogenicity likely secondary to fatty liver infiltration. NO bile duct dilatation noted. She had a CT Abdomen/Pelvis with IV contrast performed on 12/26 which was unchanged from prior study from 12/04. Study suggested fatty liver infiltration, small stable cyst in right lobe of the liver, otherwise no acute process. Remainder of workup was negative to include a hepatitis panel as well. She was seen by her surgeon during her admission and told that her pain was not surgical in nature. She was treated with protonix/zofran and pain medication. She ultimately ended up leaving [facility] because she felt her symptoms were not being adequately addressed. Per record review: patient with history of recurrent abdominal pain. She was hospitalized in October and November for abdominal pain. She had an EGD performed in October which revealed a 2cm hiatal hernia, gastritis, gastric polyps and prominent esophageal veins. She had a HIDA performed in November which showed biliary dyskinesia of 2% therefore was referred for cholecystectomy. Principal Diagnosis nausea/emesis - acute/chronic - exact etiology uncertain Discharge Exam Constitutional well developed and well nourished; no acute distress, not thin, not cachectic and no altered mental status ENMT external ear and nose normal, oropharynx normal Respiratory normal respiratory effort, lungs clear to auscultation Cardiovascular Rate/Rhythm: regular rate and regular rhythm Heart Sounds: normal S1 and normal S2; no murmur Vessels: posterior tibial pulses present and dorsalis pedis pulses present; no JVD Extremities: no edema Gastrointestinal (Abdomen) normal bowel sounds, soft, nontender, no hepatosplenomegaly Skin no rashes, warm and dry Psychiatric A+Ox3, euthymic affect Discharge Data Allergies Allergy/AdvReac Type Severity Reaction Status Date / Time No Known Allergies Allergy Unverified 12/28/18 13:09 Consultations [facility] Procedures Performed Operation Date: 12/29/18 EGD Biopsy Cytology - Ismael Sánchez MD * duodenal biopsy negative for celiac disease features * mild gastritis seen Ordered Studies 1. US gallbladder - IMPRESSION: 1. Prior cholecystectomy. 2. No evidence for abscess or collection. 3. Fatty replacement of the liver. 4. Otherwise negative study 2. MRCP - IMPRESSION: 1. No evidence of biliary or pancreatic ductal dilatation 2. No ductal filling defects to indicate calculi 3. Surgically absent gallbladder 3. MRI brain with contrast - normal Hospital Course (1) Nausea and vomiting: Present nearly 1 year. Extensive w/u to date - MRI brain, labs, EGD x 2 (performed this summer at [facility], and now [facility]), multiple CTs of abd/pelvis, multiple u/s of biliary tract, HIDA, nuclear stress test, etc -- all negative or normal except EGDs showing mild gastritis. Biopsy from EGD done at [facility] without H pylori and no celiac disease on duodenal biopsy. Nothing has fully relieved symptoms including numerous meds tried. Underwent lap monroe for biliary dyskinesia at [facility] - symptoms improved for just a few days, then nausea/emesis returned; thus biliary disease may not have been the over-arching culprit in her long-standing symptoms. Records from [facility] suggest a diagnosis of gastroparesis but she never had a formal gastric emptying study. This was attempted during this admission but she promptly vomited the food material for the study. Study was thus aborted. Could consider attempting another gastric emptying study as outpatient. No depression, anxiety, or headache history making abdominal migraines/cyclic vomiting syndrome unlikely. Despite prolonged time period with symptoms interestingly her albumin is very normal (4) and she has had minimal weight loss. TSH, cortisol, sed rate, iron studies, b12 level all normal; b12 level technically normal but <400. Obtained repeat MRI brain w/ contrast during this admission -- negative for tumor or [employer] cause of symptoms. The patient was evaluated by Lisbeth WEBER during this admission. They performed her EGD as noted above. She will have follow-up for the chronic nausea/emesis after discharge with Lisbeth WEBER. About 24 hours prior to going home she was resumed on a diet and she was able to keep food/liquids down adequately. At discharge she was asked to continue her PPI twice daily, and may use phenergan orally or rectally PRN for symptoms. The exact cause of her long-standing symptoms was uncertain. Could consider referral to a GI motility clinic post-discharge. (2) Transaminitis: Present during recent stay at [facility] and also present here. AST and ALT elevation was mild. These normalized during her stay. Due to recent lap monroe? (3) Biliary dyskinesia: s/p lap monroe November 2018. Despite such her GI symptoms have persisted. See above in "nausea and vomiting." (4) Hypoglycemia: resolved. Likely due to prolonged fasting state. cortisol level was 12 making adrenal insufficiency highly unlikely. (5) Gastritis: as seen on EGD. mild. cont PPI twice daily. biopsy negative for h.pylori. (6) Hypokalemia: replaced/resolved Total Time Total Time Spent Total Time Spent (In Minutes): 40 Total Time Includes: Examination of the Patient, Discharge Planning, Medication Reconciliation and Communication With Other Providers Discharge Plan Discharge Items Patient Disposition: Home - Self-Care Reason For Visit: ABDOMINAL PAIN Discharge Diagnosis: nausea, vomiting spells - resolved, but exact cause uncertain. MRI brain normal. MRI of the gall bladder ducts normal. Ultrasound of the liver/bile ducts normal. Cortisol level and thyroid level normal. Upper endoscopy with mild irritation of the stomach; biopsies for celiac disease were normal. Goals: 1. improve nausea and vomiting 2. obtain additional testing Activity: Resume your previous activity Non-emergency contact: Primary Care Provider and Mva Reactor Operator Call non-emergency contact if: you have any medication questions, your symptoms worsen, your pain is not controlled, your pain is worsening, your pain is unusual for you, your pain is concerning for you and you have a fever Follow-up/Referrals: Skyler Harper [Primary Care Provider] - (see your family doctor within 1 week) Krys Huggins [Nurse Practitioner] - (see Lisbeth WEBER within 1-2 weeks at [facility]; please call for appointment ) Diet: Low Fat Addtl Attending Provider Instructions: Recommendations - 1. phenergan (promethazine) 12.5mg either by mouth or per rectum every 6 hours as needed for nausea and/or vomiting. 2. continue your pantoprazole (protonix) and sucralfate as previous. 3. recommend frequent, small, low-fat meals (5-6) per day. 4. keep a "food diary" to see if any specific foods/beverages trigger your symptoms. 5. follow-up with Gastroenterology either in [place] or [place] in the next 1-2 weeks. 6. follow-up with your family doctor in 1 week. 7. take [id number] vitamin B12 1000mcg daily for 6 months. Return to any hospital if -- * you have fevers over 100.5 degrees * you have persistent vomiting that will not stop with your medications * you have concerns of dehydration * you have abdominal pain * any other concerns Pending Studies at Discharge: No Stand-Alone Forms: My [facility] Medications and DC Order Prescriptions: New promethazine [Phenergan] 12.5 mg suppository 12.5 mg AL Q6H PRN (Reason: nausea and vomiting) Qty: 12 RF: 0 promethazine 12.5 mg tablet 12.5 mg PO Q6H PRN (Reason: nausea and vomiting) Qty: 14 RF: 0 cyanocobalamin (vitamin B-12) 1,000 mcg capsule 1,000 mcg PO DAILY Qty: 30 RF: 5 Continued pantoprazole 40 mg tablet,delayed release (DR/EC) 40 mg PO BID RF: 0 Discontinued sucralfate [Carafate] 1 gram Tablet 1 g PO UD RF: 0 Discharge Orders: Discharge Order (Routine); Ordered 12/31/18 Ordered By: Tyrone Piedra Admission Data Admit Date/Time: 12/30/18 16:15 Attending Provider: Tyrone Piedra Admit Provider: Tatyana Tejeda Primary Care Provider: Skyler Harper Other Providers: Tatyana Tejeda ; Ismael Sánchez Other Interventions: Discharge Summary Assessment (RN) Last Done: 12/31/18 11:33 DC Date/Time DO NOT enter until pt leaves facility: 12/31/18 12:40
== END 2018-12-31 12:40 | disposition home or self-care (01) | DRG 392 ==
LOC: 4W 11:53 → ED 11:53 → SUATTDRO 16:07 → 4W 18:10

== ENCOUNTER 2021-01-01 06:01 | Observation (INO) ==
--- NOTE | 2020-12-16 09:50 | PAT Medication Instructions ---
Medication Instructions Date of Service December 16, 2020 Home Medications Medication Instructions Recorded tramadol 50 mg tablet 50 mg PO Q6H PRN #20 tab 07/24/20 cyclobenzaprine 10 mg tablet 5 mg PO HS PRN tramadol 50 mg tablet 50 mg PO Q6H PRN gabapentin 600 mg tablet 600 mg PO TID lidocaine 5 % topical patch 1 patch TOPICAL DAILY PRN pantoprazole 40 mg tablet,delayed release 40 mg PO QAM Continue as directed lidocaine 5 % topical patch 1 patch TOPICAL DAILY PRN (avoid placement near surgery site prior to surgery) Take morning of surgery With a small sip of water, OTHERWISE NOTHING TO EAT OR DRINK AFTER MIDNIGHT: tramadol 50 mg tablet 50 mg PO Q6H PRN (okay to take up to 4 hours prior to surgery if needed) gabapentin 600 mg tablet 600 mg PO TID pantoprazole 40 mg tablet,delayed release 40 mg PO QAM Take evening before surgery cyclobenzaprine 10 mg tablet 5 mg PO HS PRN (if needed) tramadol 50 mg tablet 50 mg PO Q6H PRN (if needed) gabapentin 600 mg tablet 600 mg PO TID Other Notes If you have any questions please call us at [phone] or [phone] or [phone] or [phone]
--- NOTE | 2020-12-18 13:16 | Anesthesiology Consultation ---
Date of Service December 18, 2020 Assessment & Plan (1) Encounter for pre-operative examination: COVID screening: Per assessment on 12/11: Travel screen negative, no known COVID- 19 positive contacts or current COVID-19 related symptoms. Patient vaccinated. Surgeon arranging preop COVID testing. Awaiting results. Chart Review Chart Review: Acceptable Risk for Surgery and Patient seen in Pre Admission Testing Teaching & Discussion Pre-Anesthesia Teaching/Discussion Notes: Instructed NPO after midnight before surgery,except medications with 15 cc of water. Medication instructions provided according to the PAT guidelines. History Surgery Operation Date: 01/01/21 07:45 Proposed Procedures p C5-C7 Anterior Cervical Discectomy and Fusion Spinal Cord Monitoring - Jevon Awan DO Height/Weight Height: 5 ft 4 in Weight: 76.2 kg Allergies Allergy/AdvReac Type Severity Reaction Status Date / Time baclofen Allergy Unknown Itching Verified 12/18/20 13:16 ondansetron [From Zofran] AdvReac Severe Agitated Verified 12/11/20 10:54 metoclopramide [From Reglan] AdvReac Intermediate Slows Verified 12/18/20 13:15 heart rate Medications Home Medications Medication Instructions Recorded Confirmed Last Taken cyclobenzaprine 10 mg tablet 5 mg PO HS PRN 04/02/20 12/11/20 Unknown tramadol 50 mg tablet 50 mg PO Q6H PRN #20 tab 07/24/20 12/11/20 08/19/20 gabapentin 600 mg tablet 600 mg PO TID 12/11/20 12/11/20 Unknown lidocaine 5 % topical patch 1 patch TOPICAL DAILY PRN 12/11/20 12/11/20 Unknown pantoprazole 40 mg tablet,delayed 40 mg PO QAM 12/11/20 12/11/20 Unknown release Past Medical History Medical History Fatty liver GERD (gastroesophageal reflux disease) History of COVID-19 Dx [place]/19/20 ([place]) > symptoms at time of loss of taste, severe vomiting, diarrhea, fatigue > resolved Neck pain with UE/back radiation Prednisone taper to be completed prior to surgery Exercise / Class Metabolic Activity II 4-5 Yardwork/Stairs/Walk up hill (one FS (no CP, no SOB)) Past Family History Family History Sister Primary biliary cirrhosis Other Heart disease Denies family history of Ovarian cancer Breast cancer Colorectal cancer Uterine cancer Past Surgical History Surgical History History of cholecystectomy History of colonoscopy History of esophagogastroduodenoscopy (EGD) S/P endometrial ablation Past Anesthesia History No Hx of Anesthesia Complications and No Family Hx of Anesthesia Complications History of PONV No Hx of PONV and No Hx of Motion Sickness STOP BANG Total 1 Social History Smoking Status: Never smoker Do You Dip or Chew Tobacco: No Hx Alcohol Use: Yes Alcohol type: wine alcohol intake frequency: other (once/month) Hx Substance Use: No Review of Systems Patient denies chest pain, shortness of breath, dyspnea on exertion, fever, chills, cough, wheezing, palpitations. Physical Exam Vital Signs VITALS BP 153/87 P 75 TEMP 99.0 SP02 99%RA RESP 16 PHYSICAL Mildly decreased cervical extension range of motion (r/t cervicalgia) Full TMJ range of motion. TMD 3 finger breaths Mallampati Score 3 Dentition: intact, + crowns (molars) Lungs: clear throughout to auscultation Cardiac: regular rate and rhythm, no murmurs noted Spine: normal Carotid arteries: negative bruit Extremities: no edema Lab Results Anesthesia Preop Results Results Anesthesia Widget: WBC 9.13 K/uL (4.8-10.8) 12/18/20 Hgb 13.7 g/dL (12.0-16.0) 12/18/20 Hct 41.0 % (37-47) 12/18/20 Plt 295 K/uL (130-400) 12/18/20 Na 142 mmol/L (136-145) 12/18/20 K 4.3 mmol/L (3.5-5.1) 12/18/20 Cl 111 mmol/L (98-107) H 12/18/20 CO2 28 mmol/L (21-32) 12/18/20 BUN 13 mg/dl (7-18) 12/18/20 Creat 0.80 mg/dl (0.6-1.2) 12/18/20 Glucose Level 85 mg/dl (70-99) 12/18/20 PT 10.3 Seconds (9.0-12.0) 12/18/20 PTT 24.2 Seconds (21.0-31.0) 12/18/20 INR 1.0 (0.9-1.1) 12/18/20 Urine Color Yellow 12/18/20 Urine Appearance Clear (Clear) 12/18/20 Urine pH 6.5 (4.5-7.5) 12/18/20 Urine Specific [place] 1.007 (1.000-1.030) 12/18/20 Urine Protein Negative (Negative) 12/18/20 Urine Glucose (UA) Negative (Negative) 12/18/20 Urine Ketones Negative (Negative) 12/18/20 Urine Blood Negative (Negative) 12/18/20 Urine Nitrite Negative (Negative) 12/18/20 Urine Bilirubin Negative (Negative) 12/18/20 Urine Urobilinogen Negative (Negative) 12/18/20 Urine Leukocyte Esterase Negative (Negative) 12/18/20 Blood Type A Positive 12/18/20 Antibody Screen NEGATIVE 12/18/20 Testing Electrocardiogram Date: 12/18/20 NSR at 80bpm. NS STA. unconfirmed report. Chest X-Ray Date: 12/18/20 FINDINGS: Lung volumes are normal. Linear bibasilar opacities favor atelectasis or scarring. There is no pneumothorax or pleural effusion. Cardiac size is normal. Mediastinal contours are normal. There is no evidence for pulmonary edema. IMPRESSION: No acute cardiopulmonary findings. Linear bibasilar opacities which favor atelectasis or scarring.
[~2021-01-01 06:01] MED LIST: ACETAMINOPHEN 500 MG TAB PO SCH; CeleBREX 200 MG CAP PO SCH; GABAPENTIN 600 MG DOSE PO SCH; LR 15ML/HR IV SCH; ceFAZolin 1000MG 1,000 MG/7.5 ML SYR IV SCH
[2021-01-01] MEDS ORDERED: fentaNYL citrate 100 MCG/2 ML VIAL ONE ×2 (06:32)
[2021-01-01] MEDS ORDERED: ROCURONIUM BROMIDE 10 MG/ML 5 ML VIAL IV ONE (06:32)
[2021-01-01] MEDS ORDERED: ONDANSETRON INJ 2 MG/ML 2 ML VIAL ONE (06:32)
[2021-01-01] MEDS ORDERED: PROPOFOL IV EMULSION 10 MG/ML 20 ML VIAL IV ONE (06:32)
[2021-01-01] MEDS ORDERED: DEXAMETHASONE SOD INJ 4 MG/ML VIAL ONE (06:32)
--- NOTE | 2021-01-01 07:30 | History & Physical Bridge Note ---
Date of Service January 01, 2021 History & Physical Bridge Note I have examined the patient, reviewed the History & Physical and in the interval since the performance of the History & Physical I have noted the following changes of clinical significance: no changes noted
--- NOTE | 2021-01-01 07:31 | History & Physical Report ---
Date of Service January 01, 2021 Assessment & Plan (1) Cervical stenosis of spinal canal: Plan: C5-C7 anterior cervical discectomy and fusion History of Present Illness Chief Complaint: Neck and bilateral arm pain Primary Care Provider: Skyler Harper DO This is a 6-year-old female who presents with chronic persistent neck and arm pain after failing course of nonoperative care is here for surgical invention. Allergies Allergy/AdvReac Type Severity Reaction Status Date / Time baclofen Allergy Unknown Itching Verified 01/01/21 06:14 ondansetron [From Zofran] AdvReac Severe Agitated Verified 01/01/21 06:14 metoclopramide [From Reglan] AdvReac Intermediate Slows Verified 01/01/21 06:14 heart rate Home Medications Medication Instructions Recorded Confirmed Type cyclobenzaprine 10 mg tablet 5 mg PO HS PRN 04/02/20 01/01/21 History tramadol 50 mg tablet 50 mg PO Q6H PRN #20 tab 07/24/20 01/01/21 Rx gabapentin 600 mg tablet 600 mg PO TID 12/11/20 01/01/21 History lidocaine 5 % topical patch 1 patch TOPICAL DAILY PRN 12/11/20 01/01/21 History pantoprazole 40 mg tablet,delayed 40 mg PO QAM 12/11/20 01/01/21 History release prednisone 2 mg tablet,delayed 4 mg PO DAILY 01/01/21 01/01/21 History release Past Med/Surg History Medical History Fatty liver GERD (gastroesophageal reflux disease) History of COVID-19 D[place]19/20 ([place]) > symptoms at time of loss of taste, severe vomiting, diarrhea, fatigue > resolved Neck pain with UE/back radiation Prednisone taper to be completed prior to surgery Surgical History History of cholecystectomy History of colonoscopy History of esophagogastroduodenoscopy (EGD) S/P endometrial ablation Family History Sister Primary biliary cirrhosis Other Heart disease Denies family history of Ovarian cancer Breast cancer Colorectal cancer Uterine cancer Social History (Updated 12/11/20 @ 11:17 by Ayala Jain RN) Smoking Status: Never smoker Second Hand Exposure: No; Do You Dip or Chew Tobacco: No; Hx Alcohol Use: Yes Alcohol type: wine Hx Substance Use: No Preferred Language: Croatian Communication Ability: Effective Sugar Reprocess Operator Head Required: No Beliefs That Will Affect Care: None Current Living Situation: Spouse current occupational status: employed current occupation: WOR[employer] Other Information That Helps Us Care for You: No Feels Safe at Home: Yes Safety Concerns: Feels Safe At This Time Assistive Devices: Glasses Physical Exam Physical Exam: Patient is alert and oriented Heart regular rhythm Lungs clear to auscultation Results & Data ([facility]) Vital Signs (Past 12 Hours) Vital Signs Temp Pulse Resp BP Pulse Ox 01/01/21 06:24 37.1 C 82 18 176/87 H 98
[2021-01-01] MEDS ORDERED: ATROPINE SULFATE 0.1 MG/ML 10ML SYR IV PRN (07:32)
[2021-01-01] MEDS ORDERED: PROMETHAZINE HCL 6.25 MG in SODIUM CHLORIDE 0.9% 50 ML IV PRN (07:32)
[2021-01-01] MEDS ORDERED: ePHEDrine sulfate 50 MG/ML AMP IV PRN (07:32)
[2021-01-01] MEDS ORDERED: diphenhydrAMINE 50 MG/ML VIAL ONE (08:08)
[2021-01-01] MEDS ORDERED: NEOSTIGMINE METHYLSULFATE 1 MG/ML 10ML VIAL ONE (08:09)
[2021-01-01] MEDS ORDERED: GLYCOPYRROLATE 0.2 MG/ML VIAL ONE ×2 (08:09)
[2021-01-01] MEDS ORDERED: FLOSEAL HEMOSTATIC MATRIX 10ML TOP ONE (08:38)
--- NOTE | 2021-01-01 09:20 | Operative Report ---
Post Operative Report Pre & Post Diagnosis Operation Date: 01/01/21 07:45 Pre-Op Diagnosis: Cervical spinal stenosis with bilateral radiculopathy Post-Op Diagnosis: Same I identified the patient and participated in the time-out.: Yes Procedure Operation Date: 01/01/21 07:45 Actual Procedures #1 anterior discectomy with bilateral foraminotomies C5-6 and C6-C7. #2 anterior cervical arthrodesis C5-C6 C6-C7. #3 placement of 7 mm spiral cage at C5-C6 and 8 mm cage at C6-C7 both filled with I factor. #4 application of henry plate and screws from C5-C7. Surgeon Jevon Awan, Hvac Specialist Hilray Lou Estimated Blood Loss 20 Findings Consistent with Post-Op Diagnosis Specimens None Indications This is a 60-year-old female who presents with bulge diagnosis after failing since course of nonoperative care she is here for surgical invention. Description of Procedure Patient was met with identified informed consent obtained. Patient was then taken to the operative suite underwent ablation placed in the supine position on the Adam table with head Mayo head automatic sawyer. All bony prominences well- padded eyes inspected to ensure no external pressure placed upon them. Intracervical spine is prepped and draped in a sterile fashion. The assistance of fluoroscopy defy the C6 vertebral body and a transverse incision was placed along the right anterior aspect of the cervical spinal lines region. Blunt dissection with the assistance of bipolar electrocautery was then performed down to and exposing the anterior cervical spine from C5-C7. Self-retaining retractors placed. Then performed a complete discectomy of see 5 C6 out to the uncovertebral's bilaterally. Barnum distracting pins utilized to assist in visualization. Removed all posterior annular fibers longitudinal ligament bilateral foraminotomies performed. Endplates were then burred to subcortically bone and a 7 mm Spira cage filled I factor tapped in position. Then proceeded to see 6 C7. Again complete discectomy performed out to the uncovertebral's bilaterally. Barnum distracting pins again utilized. Removed all posterior annular fibers longitudinal ligament bilateral foraminotomies performed. Endplates burred to subcortically bone and 8 mm spiral cage filled I factor tapped in position. Distracting apparatus was removed and a henry plate and screws applied with the assistance of fluoroscopy. The incision was then copiously irrigated explored to ensure no damage to surrounding structures remaining bleeding. 10 round COREEN drain inserted. The incision was then closed with 2 Vicryl in a fashion of 4 Monocryl for final skin closure. Steri-Strip sterile dressings placed. Patient will continue PACU stable condition. Please note spinal cord monitoring was utilized at the procedure no changes noted. Lastly Hilary Lou was present at the entire surgery and while the patient po sitioning complex portions of the surgery and final skin closure. I attest to the content of the Intraoperative Record and any orders documented therein. Any exceptions are noted below.
[2021-01-01] MEDS: fentaNYL citrate 100 MCG/2 ML VIAL IV PRN ×4 (09:38→09:53)
[2021-01-01] MEDS: HYDROmorphone INJ 1 MG/ML SYRINGE IV PRN ×11 (09:58→10:48)
[2021-01-01] MEDS ORDERED: HYDROmorphone INJ 1 MG/ML SYRINGE ONE (10:47)
[2021-01-01] MEDS: LACTATED RINGER'S 1,000 ML IV SCH ×2 (11:20→20:57)
--- NOTE | 2021-01-01 11:25 | Fluoroscopy Report ---
FL cervical 2-3V CLINICAL HISTORY: ACDF C5-7 COMPARISON STUDY: Cervical spine radiographs April 01, 2020. FLUOROSCOPY TIME: 9 seconds. FLUOROSCOPIC IMAGES: 2 FINDINGS: Fluoroscopy was provided during C5-C7 anterior discectomy and fusion. Hardware is intact. E ndotracheal tube is partially imaged. There is a surgical drain. Linear radiodensity shown on the ini tial image is not present on the final image. IMPRESSION: Fluoroscopy provided during C5-C7 anterior discectomy and fusion. ACT 112: Negative or not required by law. Electronically signed by: Rick Weeks M.D. 01/01/2021 11:24 AM
[2021-01-01] MEDS ORDERED: ONDANSETRON INJ 2 MG/ML 2 ML VIAL IV PRN (11:35)
[2021-01-01] MEDS ORDERED: RACEPINEPHRINE 2.25% NEBU SOLN 0.5 ML VIAL INH PRN (11:35)
[2021-01-01] MEDS ORDERED: LORazepam 0.5 MG/1 ML VIAL IV PRN (11:35)
[2021-01-01] MEDS ORDERED: HYDROmorphone INJ 1 MG/ML SYRINGE IV PRN (11:35)
[2021-01-01] MEDS ORDERED: ACETAMINOPHEN 1,000 MG/100 ML VIAL IV PRN (11:35)
[2021-01-01] MEDS ORDERED: MAGNESIUM HYDROXIDE SUSP 30 ML UDC PO PRN (11:35)
[2021-01-01] MEDS ORDERED: DO NOT ADMINISTER FLU VACCINE PRN (11:35)
[2021-01-01] MEDS ORDERED: ACETAMINOPHEN 500 MG TAB PO PRN (11:35)
[2021-01-01] MEDS ORDERED: bisacodyL 10 MG SUPP PR PRN (11:35)
[2021-01-01] MEDS ORDERED: SOD PHOSPHATE/SOD BIPHOSPHATE ENEMA 132 ML BTL PR PRN (11:35)
[2021-01-01] MEDS ORDERED: ALUMINUM/MAGNESIUM SUSP 30 ML UDC PO PRN (11:35)
[2021-01-01] MEDS ORDERED: PROMETHAZINE HCL 12.5 MG in SODIUM CHLORIDE 0.9% 50 ML IV PRN (11:35)
[2021-01-01] MEDS ORDERED: LORazepam 0.5 MG TAB PO PRN (11:35)
[2021-01-01] MEDS ORDERED: NALOXONE HCL 0.4 MG/1 ML VIAL/CARP IV PRN (11:35)
[2021-01-01] MEDS ORDERED: DO NOT ADMINISTER PNEUMOCOCCAL VACCINE PRN (11:35)
[2021-01-01] MEDS ORDERED: diphenhydrAMINE Capsule 25 MG CAP PO PRN (11:35)
[2021-01-01] MEDS ORDERED: FAMOTIDINE 20 MG TAB PO PRN (11:35)
[2021-01-01] MEDS ORDERED: dexAMETHasone 8 MG in SYRINGE 0 ML IV PRN (11:35)
[2021-01-01] MEDS ORDERED: METOCLOPRAMIDE HCL INJ 5 MG/ML 2 ML VIAL IV PRN (11:35)
[2021-01-01] MEDS ORDERED: hydrOXYzine HCl 25 MG TAB PO PRN (11:35)
[2021-01-01] MEDS ORDERED: CYCLOBENZAPRINE HCL 5 MG TAB PO PRN (11:47)
[2021-01-01] MEDS: GABAPENTIN 600 MG TAB PO SCH ×2 (14:28→20:56)
--- NOTE | 2021-01-01 15:04 | Anesthesiology Progress Note ---
Date of Service January 01, 2021 Anesthesia Post Procedure Vital Signs Vital Signs: Temp Pulse Pulse Resp BP BP Pulse Ox 01/01/21 14:20 36.8 C 79 14 138/86 97 01/01/21 13:20 36.4 C L 84 12 158/113 H 98 01/01/21 12:20 36.7 C 91 H 14 137/86 98 01/01/21 11:50 36.5 C 87 14 149/92 H 100 01/01/21 11:35 82 16 99 01/01/21 11:20 36.8 C 88 14 168/96 H 100 01/01/21 11:10 36.5 C 80 14 157/83 H 98 01/01/21 11:00 77 12 171/99 H 99 01/01/21 10:50 82 15 166/101 H 99 01/01/21 10:40 76 20 164/92 H 99 01/01/21 10:30 79 17 164/102 H 100 01/01/21 10:20 74 15 178/106 H 100 01/01/21 10:10 36.5 C 78 13 173/104 H 100 01/01/21 10:00 78 16 173/108 H 100 01/01/21 09:50 77 16 185/101 H 100 01/01/21 09:40 86 23 174/99 H 100 01/01/21 09:34 36.0 C L 100 H 16 194/117 H 100 01/01/21 06:24 37.1 C 82 18 176/87 H 98 Pain Intensity Neck: Pain Intensity: 3 Transfer of Care Handoff Completed per policy Notes Mental Status: alert / awake / arousable and participated in evaluation Patient Amnestic to Procedure: Yes Nausea / Vomiting: adequately controlled Pain: adequately controlled Airway Patency, RR, SpO2: stable & adequate BP & HR: stable & adequate Hydration State: stable & adequate Anesthetic Complications: no major complications apparent and Pt Satisfied with anesthetic care
[2021-01-01] MEDS: oxyCODONE HCL IR 5 MG TAB (IMMEDIATE RELEASE) PO PRN ×2 (15:48→20:55)
[2021-01-01] MEDS: ceFAZolin 2000MG 2,000 MG/15 ML SYR IV SCH ×2 (16:32→23:39)
[2021-01-01] MEDS: dexAMETHasone 6 MG in SYRINGE 0 ML IV SCH ×2 (16:32→23:39)
[2021-01-01] MEDS: HYDROmorphone INJ 0.5 MG/0.5 ML SYR IV PRN ×2 (18:39→22:12)
[2021-01-01] MEDS ORDERED: DOCUSATE SODIUM/SENNA 50/8.6MG TAB PO SCH (21:00)
[2021-01-01] MEDS: traMADol HCL 50 MG TABLET PO PRN (23:42)
[2021-01-02] MEDS: oxyCODONE HCL IR 5 MG TAB (IMMEDIATE RELEASE) PO PRN (02:21)
[2021-01-02] MEDS: HYDROmorphone INJ 0.5 MG/0.5 ML SYR IV PRN (03:12)
[2021-01-02] MEDS: traMADol HCL 50 MG TABLET PO PRN ×2 (04:03→09:16)
[2021-01-02] MEDS ORDERED: POLYETHYLENE (MIRALAX) 17 GM PACK PO SCH (06:00)
[2021-01-02 07:10] LABS: Hematocrit (blood only) 38.4 % (37-47); Hemoglobin 12.8 g/dL (12.0-16.0); Immature Granulocytes # (auto) 0.03 K/uL (0.00-0.02); Immature Granulocytes % (auto) 0.2 %; Lymphocytes # (auto) 0.71 K/uL (1.2-3.4); Lymphocytes % (auto) 5.3 %; Mean Corpuscular Hemoglobin 29.8 pg (25-34); Mean Corpuscular Hgb Conc 33.3 g/dL (32-36); Mean Corpuscular Volume 89.3 fL (80-100); Mean Platelet Volume 9.3 fL (7.4-10.4); Monocytes # (auto) 0.47 K/uL (0.11-0.59); Monocytes % (auto) 3.5 %; Neutrophils # (auto) 12.11 K/uL (1.4-6.5); Platelet Count 245 K/uL (130-400); RDW Coefficient of Variation 12.5 % (11.5-14.5); RDW Standard Deviation 39.6 fL (36.4-46.3); White Blood Count 13.32 K/uL (4.8-10.8)
[2021-01-02 07:43] LABS: BUN Creatinine Ratio 11.8 (10-20); Calcium 9.5 mg/dl (8.5-10.1); Creatinine Clr Calc Pharmacy 80.5 ml/min; Est GFR (African American) 102.1 ml/min; Est GFR (Non-African American) 88.1 ml/min; Potassium 4.2 mmol/L (3.5-5.1)
--- NOTE | 2021-01-02 08:13 | Discharge Summary ---
Date of Service January 02, 2021 Admission HPI Per Admitting Provider This is a 6-year-old female who presents with chronic persistent neck and arm pain after failing course of nonoperative care is here for surgical invention. Principal Diagnosis Cervical spinal stenosis with radiculopathy Discharge Data Allergies Allergy/AdvReac Type Severity Reaction Status Date / Time baclofen Allergy Unknown Itching Verified 01/01/21 06:14 ondansetron [From Zofran] AdvReac Severe Agitated Verified 01/01/21 06:14 metoclopramide [From Reglan] AdvReac Intermediate Slows Verified 01/01/21 06:14 heart rate Consultations 01/01/21 11:35 Consult Hospitalist Routine Procedures Performed Operation Date: 01/01/21 07:45 Actual Procedures p C5-C7 Anterior Cervical Discectomy and Fusion Spinal Cord Monitoring(Not Applicable) - Jevon Awan DO Ordered Studies 01/01/21 07:45 FL cervical 2-3V Routine Hospital Course (1) Cervical stenosis of spinal canal: Patient 1 anterior cervical discectomy fusion trial as well as taken orthopedic for possibly. Postop day 1 she was up and ambulating swallowing well no hoarseness. Arm symptoms markedly improved. Pain well controlled. COREEN drain decreasing probably. Separately discharged home. Discharge orders instructions from the chart for further review. Total Time Total Time Spent Total Time Spent (In Minutes): 20 minutes Discharge Plan Discharge Items Patient Disposition: Home - Self-Care Reason For Visit: Spinal Stenosis Cervical Region Discharge Diagnosis: Cervical radiculopathy Activity: As commented below Non-emergency contact: Primary Care Provider Call non-emergency contact if: you have any medication questions Follow-up/Referrals: Skyler Harper DO [Primary Care Provider] - Diet: Regular Addtl Attending Provider Instructions: ACTIVITY RECOMMENDATIONS: SELF CARE INSTRUCTIONS AFTER CERVICAL FUSIONS 1. No smoking. Smoking drastically decreases the chance of a solid fusion. 2. No bending, lifting more than 5 pounds, or twisting (roll like a log when turning in bed). 3. You may shower 3 days after surgery. Thoroughly dry wound. Do not soak in the tub. 4. Cervical collar: Must be worn at all times including sleeping. You may remove the brace only to bath, eat and if you are sitting in a recliner. 5. Please walk as much as you can for exercise. Gradually increase the distance that you walk as your endurance increases. SPECIAL CARE INSTRUCTIONS: VERY IMPORTANT TO READ AND REVIEW A. Do not take any anti-inflammatory medications (i.e. Indocin, Advil, Aspirin, Naprosyn, Aleve, Motrin, etc.) as these may inhibit the chance of a solid fusion. Tylenol is okay to take. B. Your surgical incision has been closed with a cosmetic suture under the skin that will dissolve in about 6 weeks. In 14 days, you can use a pair of clean scissors and cut the suture that is left outside of the skin at the ends of your incision. C. Complications are uncommon, but please contact us if you have any signs or symptoms of: 1. wound infection (fever higher than 102.5 degrees F, redness, separation of wound, drainage, or increasing pain from the incision) 2. blood clots in legs (pain, swelling, redness and warmth in legs) 3. urinary tract infection (fever higher than 102.5 degrees, burning upon urination or increased frequency of urination) 4. nerve problems (inability to walk on your toes or heels, numbness, loss of bowel or bladder control) 5. any other symptoms that concern you. D. Please call the office at if you have any concerns or questions about your operation or recovery. MANAGING PAIN AFTER SPINAL SURGERY 1. Narcotic medication is intended for short-term use and will be provided for surgical pain. Surgical pain usually lasts for a period of 4-6 weeks. Narcotic medication includes Percocet, Vicodin, Darvocet, Tylenol #3 or Lortab. 2. Longer-term pain is more appropriately treated with non-narcotic medication such as Tylenol ES. 3. Muscle spasm is not appropriately treated with narcotics. Muscle relaxers such as Soma, Flexeril or Skelaxin can be used along with Tylenol ES. 4. Remember that we all live with some "aches and pains". This is not unusual or uncommon after an injury or as we get older. 5. We will provide appropriate medication within the normal guidelines of their prescribed use. We will also be very cautious and aware of potential abuse and extended duration of patients' medication needs. 6. Please allow 2-3 days to process refills. Prescriptions will not be mailed but must be picked up at the office. FOLLOW UP VISIT: Keep your scheduled follow-up appointment. Any questions, please call the office at . Pending Studies at Discharge: No Stand-Alone Forms: [facility], Smoking Cessation Medications and DC Order Prescriptions: New tramadol 50 mg tablet 50 mg PO Q6H PRN (Reason: pain, moderate) Qty: 20 RF: 0 oxycodone 5 mg tablet 5 mg PO Q6H PRN (Reason: pain, severe) Qty: 20 RF: 0 Continued cyclobenzaprine 10 mg tablet 5 mg PO HS PRN (Reason: Muscle Spasm) RF: 0 tramadol 50 mg tablet 50 mg PO Q6H PRN (Reason: pain) Qty: 20 RF: 0 gabapentin 600 mg Tablet 600 mg PO TID RF: 0 pantoprazole 40 mg Tablet,Delayed Release (Dr/Ec) 40 mg PO QAM RF: 0 lidocaine 5 % adhesive patch,medicated 1 patch topical DAILY PRN (Reason: Pain) RF: 0 Discontinued prednisone 2 mg Tablet,Delayed Release (Dr/Ec) 4 mg PO DAILY RF: 0 Discharge Orders: Discharge Order (Routine); Ordered 01/02/21 Ordered By: Jevon Awan Admission Data Admit Date/Time: 01/01/21 09:24 Attending Provider: Jevon Awan Admit Provider: Jevon Awan Primary Care Provider: Skyler Harper Other Providers: Laureano Simon
[2021-01-02] MEDS ORDERED: dexAMETHasone 6 MG in SYRINGE 0 ML IV ONE (08:30)
[2021-01-02] MEDS ORDERED: PANTOprazole 40 MG TAB PO SCH (09:00)
[2021-01-02] MEDS: dexAMETHasone 6 MG in SYRINGE 0 ML IV SCH ×2 (09:14→09:19)
[2021-01-02] MEDS: GABAPENTIN 600 MG TAB PO SCH (09:15)
[2021-01-02] MEDS ORDERED: COUGH DROP (SUGAR FREE) LOZ 24 LOZ/1 BOX BUCCAL ONE (09:30)
--- NOTE | 2021-01-02 10:55 | Hospitalist Consultation ---
Date of Consultation January 02, 2021 Assessment & Plan (1) Cervical stenosis of spinal canal: * S/p cervical discectomy with spiral cage and plate (C5-C6 and C6-C7)POD #1 * Recommend adequate postoperative pain management, PT/OT, incentive spirometry, and DVT prophylaxisat discretion of primary team * BP slightly elevated. Patient does not have an underlying history of hypertension. Review of records show that her blood pressure seems reasonably controlled prior to this procedure. May be pain induced. She should follow- up with her PCP. Otherwise, patient may continue her gabapentin, Flexeril, pantoprazole at discretion of primary team * Will sign off on this patient from a medical management. Do not hesitate to reconsult should a problem arise. Thank you for allowing me to participate in her care * From a medical standpoint, no contraindication to proceed with discharge as planned History of Present Illness Reason for Consultation: Medical management Attending Physician: Jevon Awan, DO History of Present Illness Mrs. Young is a 60-year-old white female with an underlying past medical history of GERD, fatty liver, and a prior history of Covid (09/06) for which she completely recovered. She was seen in consultation for medical management following cervical discectomy/arthrodesis/spiral cage/and plate of C5-C6 and C6- C7. Today garcia POD #1. Dr. Awan was the surgeon. She had an uneventful perioperative course and is currently resting comfortably in her hospital bed. Having pain but overall is tolerable. Tolerating pain medication without ill effects. Blood pressure has been somewhat elevated (176 3/98 currently). She does not have an underlying history of hypertension. She lives in a two-story home with her . She is actually being discharged later today. Patient does not take hormone replacement therapy. She denies a personal and/or family history of DVT/PE/blood dyscrasia. Allergies Allergy/AdvReac Type Severity Reaction Status Date / Time baclofen Allergy Unknown Itching Verified 01/01/21 06:14 ondansetron [From Zofran] AdvReac Severe Agitated Verified 01/01/21 06:14 metoclopramide [From Reglan] AdvReac Intermediate Slows Verified 01/01/21 06:14 heart rate Home Medications Medication Instructions Recorded Confirmed Type cyclobenzaprine 10 mg tablet 5 mg PO HS PRN 04/02/20 01/01/21 History tramadol 50 mg tablet 50 mg PO Q6H PRN #20 tab 07/24/20 01/01/21 Rx gabapentin 600 mg tablet 600 mg PO TID 12/11/20 01/01/21 History lidocaine 5 % topical patch 1 patch TOPICAL DAILY PRN 12/11/20 01/01/21 History pantoprazole 40 mg tablet,delayed 40 mg PO QAM 12/11/20 01/01/21 History release oxycodone 5 mg tablet 5 mg PO Q6H PRN #20 tab 01/01/21 Rx tramadol 50 mg tablet 50 mg PO Q6H PRN #20 tab 01/01/21 Rx Patient History Medical History Fatty liver GERD (gastroesophageal reflux disease) History of COVID-19 Dx 08/19/20 ([place]) > symptoms at time of loss of taste, severe vomiting, diarrhea, fatigue > resolved Neck pain with UE/back radiation Prednisone taper to be completed prior to surgery Surgical History History of cholecystectomy History of colonoscopy History of esophagogastroduodenoscopy (EGD) S/P endometrial ablation Family History Sister Primary biliary cirrhosis Other Heart disease Denies family history of Ovarian cancer Breast cancer Colorectal cancer Uterine cancer Social History Smoking Status: Never smoker Second Hand Exposure: No; Do You Dip or Chew Tobacco: No; Hx Alcohol Use: Yes Alcohol type: wine Hx Substance Use: No Preferred Language: Telugu Communication Ability: Effective 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 Beliefs That Will Affect Care: None marital status: Current Living Situation: Spouse current occupational status: employed current occupation: [employer] Other Information That Helps Us Care for You: No Feels Safe at Home: Yes Safety Concerns: Feels Safe At This Time Assistive Devices: None Review of Systems Review of Systems: All systems reviewed and are unremarkable except as noted in HPI and below Denies fevers, chills, headache, nasal congestion, sore throat, cough, chest pain, palpitations, shortness of breath, abdominal pain, nausea, vomiting, dysuria, hematuria, frequency, skin lesions or rashes, polydipsia, polyuria, polyphagia, heat or cold intolerance. Physical Exam Physical Exam: General: Resting comfortably in her hospital bed. NAD. Neck: Cervical brace in place. Surgical dressing seen anteriorly that is dry. COREEN drain coming from neck Cardiac: RRR without M/G/R Lungs: CTA without W/R/R Abdomen: Normoactive X4. Soft and nontender in all quadrants. Extremities: No peripheral clubbing cyanosis or edema Neuro: A&O X4 cranial nerves II through XII are grossly intact no focal neuro d eficits Skin: No obvious skin lesions or rashes Results & Data Results & Data ([facility]) Vital Signs (Past 12 Hours) Vital Signs Temp Pulse Resp BP Pulse Ox 01/02/21 07:58 36.7 C 83 18 173/98 H 97 01/02/21 07:35 82 16 96 01/02/21 06:05 36.6 C 79 18 159/89 H 97 01/02/21 04:00 36.9 C 72 20 185/96 H 96 01/02/21 03:55 78 16 96 01/02/21 02:07 36.7 C 82 18 164/93 H 95 01/01/21 23:47 36.4 C L 76 18 149/94 H 94 01/01/21 23:00 85 18 97 Laboratory Results 01/02/21 06:23 01/02/21 06:23 PG Care Time/CCT Total # of Minutes Spent Total Time Spent with Patient: Total time spent is greater than 50% in coordinat ion of care (as documented) at patient's floor/unit and/or counseling patient: [place] [address] Inpt Consult Level 4 Patient Type New History Problem Focused Exam Problem Focused Medical Decision Making Low Complexity Diagnoses Cervical stenosis of spinal canal M48.02
== END 2021-01-02 12:38 | disposition home or self-care (01) ==
LOC: ASU 06:01 → 3E 09:24 → INTOOBSV 09:24